=== PATIENT | male | born 1950 | race Caucasian/White ===

== ENCOUNTER 2021-03-25 15:37 | Emergency (ER) | payer MEDICARE, SELFPAY ==
--- NOTE | ~2021-03-25 | CT_ITS ---
EXAMINATION: CTA chest DATE: 03/25/2021 18:59 INDICATION: Shortness of breath TECHNIQUE: Computed tomographic angiography (CTA) of the chest was performed with 100 mL Omnipque-350 intravenous contrast. Maximum intensity projection 3D-reconstructions of the aorta and other arterie s were constructed by the technologist on a separate workstation. The dose-length product (DLP) was 5 83.98 mGy-cm. Automated exposure control and iterative reconstruction technique were employed. COMPARISON: None. FINDINGS: The thoracic aorta is normal without evidence of aneurysm or dissection. Calcified coronary artery atherosclerosis is noted. The pulmonary arteries are well-opacified. No pulmonary embolism is identified. The lungs are free of acute opacities. No pathologically enlarged thoracic lymph nodes a re identified. The heart size is normal. There is no pleural effusion or pneumothorax. Calcified pulm onary nodules are consistent with old granulomatous disease. There is a 3.4 cm nodule of the left thy roid lobe. There is a 1.4 cm nodule of the isthmus. Neurostimulator leads and posteriorly in the cent ral spinal canal at the level of the T6 vertebral body. IMPRESSION: 1. No thoracic aortic aneurysm or dissection. No acute cardiopulmonary abnormality. 2. Multinodular goiter. Follow-up with nonemergent thyroid ultrasound is recommended. Reviewed, dictated and finalized at location A. IMPRESSION: 1. No thoracic aortic aneurysm or dissection. No acute cardiopulmonary abnormal ity. 2. Multinodular goiter. Follow-up with nonemergent thyroid ultrasound is recomm ended.
--- NOTE | ~2021-03-25 | XR_ITS ---
EXAMINATION: XR chest 2V DATE: 03/25/2021 16:20 INDICATION: Midsternal chest pain TECHNIQUE: PA and lateral views of the chest are obtained. COMPARISON: 05/14/2013 FINDINGS: The lungs are free of acute opacities. There is no pleural effusion or pneumothorax. The ca rdiomediastinal silhouette is normal. There is moderate thoracic spondylosis. Neurostimulator leads p roject in the central spinal canal IMPRESSION: 1. No acute cardiopulmonary abnormality. Reviewed, dictated and finalized at location A.
--- NOTE | 2021-03-25 16:01 | PC.NURSE ---
pt ambulatory with steady gait to front end driver asking about wait time. pt informed we are unable to provide wait times. pt stated, well a year ago they found blood clots . pt does not appear to be in any distress. informed we would get him triaged and to a room as soon as we are able.
[2021-03-25 16:05] VITALS: BP 121/83; PULSE 92; RESP 18; TEMP 36.5; O2SAT 98
--- NOTE | 2021-03-25 16:05 | ECG_ITS ---
Measurements Intervals Ama Rate: 90 P: 58 RI: 128 QRS: -18 QRSD: 79 T: 75 QT: 330 QTc: 405 Interpretive Statements SINUS RHYTHM NORMAL ECG Electronically Signed On 03-25-2021 17:01:36 CDT by Serge Reeves D.O.
[2021-03-25 16:20] LABS: Basophils Absolute Auto 0.1 K/mm3 (0.0-0.1); Basophils Percent Auto 0.7 % (0.2-1.2); Eosinophils Absolute Auto 0.1 K/mm3 (0-0.3); Eosinophils Percent Auto 1.1 % (0-4.4); Hematocrit 45.8 % (42.0-52.0); Hemoglobin 15.3 g/dL (14.0-18.0); Immature Granulocyte Absolute 0.12 K/mm3 (0.00-0.031); Immature Granulocyte Percent A 1.3 % (0-0.5); Lymphocytes Absolute Auto 2.87 K/mm3 (0.9-3.2); Lymphocytes Percent Auto 31.3 % (18.3-44.2); Mean Corpuscular HGB Conc 33.4 g/dl (32-36); Mean Corpuscular Hemoglobin 29.7 pg (26-34); Mean Corpuscular Volume 88.9 fl (80-100); Mean Platelet Volume 9.6 fl (7.4-10.4); Monocytes Absolute Auto 0.8 K/mm3 (0.1-0.6); Monocytes Percent Auto 8.3 % (2.6-8.5); Neutrophils Absolute Auto 5.3 K/mm3 (1.3-6.7); Neutrophils Percent Auto 57.3 % (45.5-73.1); Platelet Count Result 300 k/mm3 (150-375); Red Blood Count 5.15 M/mm3 (4.6-6.20); Red Cell Distribution Width 13.4 % (11.5-14.5); White Blood Count 9.2 K/mm3 (4.5-10.0)
[2021-03-25 16:28] LABS: Anion Gap 11 mmol/L (8-16); Blood Urea Nitrogen 25 mg/dL (9-20); Calcium 9.8 mg/dL (8.4-10.2); Carbon Dioxide 23 mmol/L (22-30); Chloride 103 mmol/L (98-107); Estimated CRCL calculation 47 ml/min; Estimated Glomerular Filt Rate 46; Glucose 92 mg/dL (65-110); Potassium 4.4 mmol/L (3.4-5.0); Sodium 137 mmol/L (137-145)
[2021-03-25 16:35] LABS: INR 0.9; Prothrombin Time 11.6 Seconds (11.1-14.7)
[2021-03-25 16:46] LABS: Troponin I < 0.012 ng/mL (0.000-0.034)
--- NOTE | 2021-03-25 17:58 | PC.NURSE ---
pt up to front end architect stating my god, how long does it take to get a room? . pt informed again of process and that we are unable to provide an estimated wait time.
--- NOTE | 2021-03-25 18:00 | PC.NURSE ---
lab called regarding added on d dimer that was ordered at approx 1601. lab personnel states oh, I didn't see it. I'll add it on now
[2021-03-25 18:11] LABS: D Dimer 0.33 ug/mL (<0.48)
--- NOTE | 2021-03-25 19:02 | ED.CHESTPAIN ---
HPI - Chest Pain General Chief Complaint: Chest Pain Stated Complaint: CP, SOB since yesterday Time Seen by Provider: 03/25/21 19:01 History of Present Illness HPI narrative: 70 yo male w/ h/o PE, htn, PTSD presents to the ED for chest pain. He has had right sided pleuritic chest pain since yesterday. This is associated with SOB. Feels like when he had a PE. He is no longer on blood thinners. He reports that he had sme leg swelling a few days ago, which has resolved. No fever, cough, nausea, vomiting. Related Data Allergies Allergy/AdvReac Type Severity Reaction Status Date / Time No Known Allergies Allergy Unverified 08/14/18 09:10 Review of Systems Review of Systems: All systems reviewed & are unremarkable except as noted in HPI and below ENT: Reports system reviewed and no additional complaints, except as documented Respiratory: Respiratory: Reports no additional respiratory complaints Gastrointestinal: Gastrointestinal: Reports no additional gastrointestinal complaints Genitourinary: Genitourinary: Reports no additional male genitourinary complaints Neurologic: Denies dizziness and Denies weakness Psychiatric: Psychiatric: Reports anxiety PMFSH Past Medical History Medical History (Updated 03/25/21 @ 20:44 by Carlos Barksdale MD) PTSD (post-traumatic stress disorder) Pulmonary embolism Social History Social History (Updated 03/25/21 @ 19:37 by Carlos Barksdale MD) Gender identity (if verbalized by the patient): Male Exam Const: General: healthy appearing, no acute distress and alert Orientation/consciousness: patient oriented x3 HENMT: Head: normal to inspection Neck: Neck: normal visual inspection and no lymphadenopathy Chest: Chest palpation & inspection: no tenderness Resp: Effort & Inspection: normal respiratory effort Auscultation: clear to auscultation bilaterally, no rales, no rhonchi and no wheezes Cardio: Jugular venous distension: no JVD Rate: regular rate Rhythm: regular rhythm Heart sounds: no murmurs GI: Inspection: non-distended GI Palp: Yes Soft to palpation and No Tenderness to palpation present (GI) Skin: General skin exam: normal color Neuro: General: patient oriented x3 and moves all extremities Speech: normal speech Extrem: General: no edema Psych: Appearance: well kempt Affect: normal affect Course Vital Signs Vital signs: Vital Signs Temperature 36.5 C 03/25/21 16:05 Pulse Rate 92 03/25/21 16:05 Respiratory Rate 18 03/25/21 16:05 Blood Pressure 121/83 03/25/21 16:05 Pulse Oximetry 98 03/25/21 16:05 Temperature 36.5 C 03/25/21 16:05 Pulse Rate 88 03/25/21 19:28 Respiratory Rate 20 03/25/21 19:28 Blood Pressure 131/95 H 03/25/21 19:28 Pulse Oximetry 100 03/25/21 19:28 MDM - Chest Pain MDM Narrative Medical decision making narrative: CTA negative. EKG normal. Troponin negative. Other labs reassuring. Likely Pleurisy versus GI. Differential Diagnosis Differential diagnosis: Likely pneumothorax, atypical chest pain, chest pain and other (pleurisy) Medical Records Data Attestation: I reviewed the patient's medical records. Lab Data Attestation: I reviewed the patient's lab results. Result diagrams: 03/25/21 16:12 03/25/21 16:12 Labs: Lab Results 03/25/21 03/25/21 03/25/21 Range/Units 16:12 16:12 16:12 WBC 9.2 (4.5-10.0) K/mm3 RBC 5.15 (4.6-6.20) M/mm3 Hgb 15.3 (14.0-18.0) g/dL Hct 45.8 (42.0-52.0) % MCV 88.9 (80-100) fl MCH 29.7 (26-34) pg MCHC 33.4 (32-36) g/dl RDW 13.4 (11.5-14.5) % Plt Count 300 (150-375) k/mm3 MPV 9.6 (7.4-10.4) fl Immature Gran % (Auto) 1.3 H (0-0.5) % Neut % (Auto) 57.3 (45.5-73.1) % Lymph % (Auto) 31.3 (18.3-44.2) % [place] % (Auto) 8.3 (2.6-8.5) % Eos % (Auto) 1.1 (0-4.4) % Baso % (Auto) 0.7 (0.2-1.2) % Lymph # (Auto) 2.87 (0.9-3.2) K/mm3 [place] # (Auto) 0
[2021-03-25 19:28] VITALS: BP 131/95; PULSE 88; RESP 20; O2SAT 100
[2021-03-25] MEDS: KETOROLAC 30 MG/ML VIAL (*BKC) IV PUSH (19:36)
[2021-03-25 19:52] LABS: Troponin I < 0.012 ng/mL (0.000-0.034)
[2021-03-25] MEDS: PANTOPRAZOLE SODIUM IV 40 MG VIAL IV PUSH (20:04)
[2021-03-25] MEDS: traMADol HCL (*CRX) 50 MG TABLET PO (20:55)
[2021-03-25 21:41] VITALS: BP 127/92; PULSE 77; RESP 20; O2SAT 98
== END 2021-03-25 21:43 | disposition home or self-care (01) ==
PROVIDERS: Emergency Medicine; Emergency Provider Emergency Medicine; PCP Internal Medicine
DX: R07.89 Other chest pain (principal); Z86.711 Personal history of pulmonary embolism; I10 Essential (primary) hypertension; E04.2 Nontoxic multinodular goiter
CPT/HCPCS: 36415; 71046; 71275; 80048; 84484; 85025; 85380; 85610; 85730; 93005; 96374; 96375; 99284; A9270; C9113; J1885; Q9967

== ENCOUNTER 2021-12-09 09:46 | Outpatient (CLI) | payer MEDICARE, SELFPAY ==
--- NOTE | 2021-12-09 11:30 | NEURO_ITS ---
Impression: # Complains of numbness in hands. # Right Carpal Tunnel Syndrome of mild degree. # No ulnar neuropathy. # Normal needle/EMG exam. Nerve Conduction Studies Anti Sensory Summary Table Stim Site NR Peak (ms) P-T Amp (?V) Site1 Site2 Delta-P (ms) Dist (cm) Marquise (m/s) Left Median Anti Sensory (2-3nd Digit) Wrist 3.5 39.2 Wrist 2-3nd Digit 3.5 14.0 40 Wrist 3.5 41.9 Wrist 2-3nd Digit 3.5 14.0 40 Right Median Anti Sensory (2-3nd Digit) Wrist 3.9 13.7 Wrist 2-3nd Digit 3.9 14.0 36 Wrist 3.9 14.9 Wrist 2-3nd Digit 3.9 14.0 36 Left Radial Anti Sensory (Base 1st Digit) Wrist 2.5 10.8 Wrist Base 1st Digit 2.5 0.0 Right Radial Anti Sensory (Base 1st Digit) Wrist 2.6 12.1 Wrist Base 1st Digit 2.6 0.0 Left Ulnar Anti Sensory (5th Digit) Wrist 2.8 51.4 Wrist 5th Digit 2.8 14.0 50 Right Ulnar Anti Sensory (5th Digit) Wrist 2.8 33.3 Wrist 5th Digit 2.8 14.0 50 Motor Summary Table Stim Site NR Onset (ms) O-P Amp (mV) Site1 Site2 Delta-0 (ms) Dist (cm) Marquise (m/s) Left Median Motor (Abd Poll Brev) Wrist 3.8 2.8 Elbow Wrist 5.0 28.0 56 Elbow 8.8 2.6 Right Median Motor (Abd Poll Brev) Wrist 4.2 3.7 Elbow Wrist 5.1 29.0 57 Elbow 9.3 3.5 Left Ulnar Motor (Abd Dig Minimi) Wrist 2.9 8.0 A Elbow Wrist 5.3 29.0 55 A Elbow 8.2 6.4 Right Ulnar Motor (Abd Dig Minimi) Wrist 3.0 7.7 A Elbow Wrist 5.5 31.0 56 A Elbow 8.5 6.6 F Wave Studies NR F-Lat (ms) L-R F-Lat (ms) Left Median (Mrkrs) (Abd Poll Brev) 29.95 0.15 Right Median (Mrkrs) (Abd Poll Brev) 30.10 0.15 Left Ulnar (Mrkrs) (Abd Dig Min) 30.94 0.37 Right Ulnar (Mrkrs) (Abd Dig Min) 30.57 0.37 EMG Side Muscle Nerve Root Ins Act Fibs Amp Dur Recrt Comment Right 1stDorInt Ulnar C8-T1 Nml Nml Nml Nml Nml Right Ext Indicis Radial (Post Int) C7-8 Nml Nml Nml Nml Nml Right Ext Digitorum Radial (Post Int) C7-8 Nml Nml Nml Nml Nml Right BrachioRad Radial C5-6 Nml Nml Nml Nml Nml Right PronatorTeres Median C6-7 Nml Nml Nml Nml Nml Right Abd Poll Brev Median C8-T1 Nml Nml Nml Nml Nml Left 1stDorInt Ulnar C8-T1 Nml Nml Nml Nml Nml Left Ext Indicis Radial (Post Int) C7-8 Nml Nml Nml Nml Nml Left Ext Digitorum Radial (Post Int) C7-8 Nml Nml Nml Nml Nml Left BrachioRad Radial C5-6 Nml Nml Nml Nml Nml Left PronatorTeres Median C6-7 Nml Nml Nml Nml Nml Left Abd Poll Brev Median C8-T1 Nml Nml Nml Nml Nml Right ABD Dig Min Ulnar C8-T1 Nml Nml Nml Nml Nml Right Abd Poll Long Radial (Post Int) C7-8 Nml Nml Nml Nml Nml Left ABD Dig Min Ulnar C8-T1 Nml Nml Nml Nml Nml Left Abd Poll Long Radial (Post Int) C7-8 Nml Nml Nml Nml Nml MTDD
== END 2021-12-09 09:47 | disposition home or self-care (01) ==
PROVIDERS: PCP Family Medicine; Visit Provider Orthopaedic Surgery
DX: R20.8 Other disturbances of skin sensation (principal); G56.01 Carpal tunnel syndrome, right upper limb
CPT/HCPCS: 95886; 95911

== ENCOUNTER 2022-01-26 10:59 | Outpatient (CLI) | payer MEDICARE, SELFPAY ==
--- NOTE | ~2022-01-26 | US_ITS ---
EXAMINATION: US thyroid DATE: 01/26/2022 11:46 INDICATION: Nontoxic single thyroid nodule. TECHNIQUE: Multiple ultrasound images of the thyroid were obtained. COMPARISON: Chest CT 03/25/2021 FINDINGS: The right thyroid lobe measures 4.9 x 1.7 x 2.1 cm. The left thyroid lobe measures 5.2 x 9.5 x 4.6 c m. In the right thyroid lobe, there is an 11 mm mixed cystic and solid, isoechoic nodule with ill-de fined margin without echogenic foci (TI-RADS TR2). In the left thyroid lobe, there is a 3.3 cm mixed cystic and solid, isoechoic, wider than tall nodule with ill-defined margin without echogenic foci (T R2). In the left thyroid lobe, there is a 5.5 cm predominantly solid, hypoechoic, wider than tall nod ule with ill-defined margin without echogenic foci (TR4). IMPRESSION: 1. Multinodular goiter. Ultrasound-guided fine-needle aspiration of a left thyroid nodule is recommen ded. Reviewed, dictated and finalized at location A. IMPRESSION: 1. Multinodular goiter. Ultrasound-guided fine-needle aspiration of a left thyr oid nodule is recommended.
== END 2022-01-26 11:00 | disposition home or self-care (01) ==
PROVIDERS: PCP Family Medicine; Visit Provider Family Medicine
DX: E04.2 Nontoxic multinodular goiter (principal)
CPT/HCPCS: 76536

== ENCOUNTER 2022-03-31 12:03 | Outpatient (CLI) | payer MEDICARE, SELFPAY ==
--- NOTE | ~2022-03-31 | XR_ITS ---
EXAMINATION: XR abdomen/kub 1V DATE: 03/31/2022 12:30 INDICATION: Constipation TECHNIQUE: A supine view of the abdomen on 2 radiographs was obtained. COMPARISON: None FINDINGS: Moderate amount of gas scattered throughout nondilated loops of large and small bowel. Small to moder ate amount of stool scattered throughout the colon. Lung bases are clear. Heart size is normal. Sever e lumbar spondylosis with interspinous process fixation device at L4-L5. Spinal stimulator projects o f the right abdomen with leads extending cephalad projecting over the central canal with distal tip o f one lead at the level of the inferior aspect of T7 the second lead position slightly higher with di stal tip just beyond the cephalad margin of the [id number]. A few phleboliths in the pelvis. Surgi holland clips projecting over the left supra-acetabular region likely related to prior inguinal hernia re pairs. IMPRESSION: 1. Normal bowel gas pattern with small to moderate amount stool scattered throughout the colon. Reviewed, dictated and finalized at location A. IMPRESSION: 1. Normal bowel gas pattern with small to moderate amount stool scattered throu ghout the colon.
[2022-03-31 12:56] LABS: Basophils Percent Auto 0.4 % (0.2-1.2); Eosinophils Percent Auto 0.3 % (0-4.4); Hematocrit 47.3 % (42.0-52.0); Hemoglobin 16.1 g/dL (14.0-18.0); Immature Granulocyte Absolute 0.03 K/mm3 (0.00-0.031); Immature Granulocyte Percent A 0.3 % (0-0.5); Lymphocytes Absolute Auto 2.08 K/mm3 (0.9-3.2); Lymphocytes Percent Auto 20.6 % (18.3-44.2); Mean Corpuscular Hemoglobin 30.6 pg (26-34); Mean Corpuscular Volume 89.9 fl (80-100); Mean Platelet Volume 9.8 fl (7.4-10.4); Monocytes Percent Auto 9.6 % (2.6-8.5); Neutrophils Percent Auto 68.8 % (45.5-73.1); Platelet Count Result 276 k/mm3 (150-375); Red Blood Count 5.26 M/mm3 (4.6-6.20); Red Cell Distribution Width 13.1 % (11.5-14.5); White Blood Count 10.1 K/mm3 (4.5-10.0)
[2022-03-31 13:10] LABS: Alanine Aminotransferase 14 U/L (6-50); Albumin Level 4.9 g/dL (3.5-5.1); Alkaline Phosphatase 68 U/L (38-126); Amylase 61 U/L (30-110); Anion Gap 11 mmol/L (8-16); Aspartate Amino Transferase 22 U/L (17-59); Bilirubin,Total 0.9 mg/dL (0.2-1.3); Blood Urea Nitrogen 21 mg/dL (9-20); Calcium 9.9 mg/dL (8.4-10.2); Carbon Dioxide 27 mmol/L (22-30); Chloride 95 mmol/L (98-107); Estimated Glomerular Filt Rate > 60; Glucose 117 mg/dL (65-110); Lipase 38 U/L (23-300); Potassium 3.5 mmol/L (3.4-5.0); Sodium 133 mmol/L (137-145)
== END 2022-03-31 12:04 | disposition home or self-care (01) ==
LOC: ANHIMG 12:11
PROVIDERS: PCP Family Medicine; Visit Provider Nurse Practitioner Family
DX: K59.00 Constipation, unspecified (principal); R10.9 Unspecified abdominal pain; K74.60 Unspecified cirrhosis of liver; E04.1 Nontoxic single thyroid nodule; E04.2 Nontoxic multinodular goiter; R91.1 Solitary pulmonary nodule
CPT/HCPCS: 36415; 74018; 80053; 82150; 83690; 84439; 84443; 85025

== ENCOUNTER 2022-04-12 07:37 | Outpatient (CLI) | payer MEDICARE, SELFPAY ==
--- NOTE | ~2022-04-12 | CT_ITS ---
EXAMINATION: CT diagnostic chest w con DATE: 04/12/2022 08:16 INDICATION: Chest pain. History of pulmonary nodules. TECHNIQUE: Computed tomography (CT) of the chest was performed with 100 cc Omnipaque 350 intravenous contrast. The dose-length product was 226.01 mGy-cm. Automated exposure control and iterative reconst ruction technique were employed. COMPARISON: CT dated 03/25/2021 FINDINGS: No significant pleural or pericardial effusion. No thoracic lymphadenopathy. Enlarged left thyroid gland containing multiple masses. No thoracic lymphadenopathy. Fatty infiltration of the live r. Calcified granuloma left lower lobe. 2 mm groundglass nodule right upper lobe, likely benign. No f ocal airspace consolidation. No pneumothorax. No endobronchial lesions. Mild thoracic spondylosis. Sp inal stimulator leads are present in the midthoracic spine. IMPRESSION: 1. Multinodular goiter. Ultrasound-guided fine-needle aspiration biopsy of dominant left thyroid mass recommended on prior examination. 2: Groundglass nodule right upper lobe measuring 2 mm, likely benign. Reviewed, dictated and finalized at location B. IMPRESSION: 1. Multinodular goiter. Ultrasound-guided fine-needle aspiration biopsy of julius nant left thyroid mass recommended on prior examination. 2: Groundglass nodule right upper lobe measuring 2 mm, likely benign.
== END 2022-04-12 07:38 | disposition home or self-care (01) ==
PROVIDERS: PCP Family Medicine; Visit Provider Nurse Practitioner Family
DX: R91.1 Solitary pulmonary nodule (principal); R30.0 Dysuria; K74.60 Unspecified cirrhosis of liver; E04.2 Nontoxic multinodular goiter
CPT/HCPCS: 71260; Q9967

== ENCOUNTER 2022-04-18 12:39 | Outpatient (CLI) | payer MEDICARE, SELFPAY ==
--- NOTE | ~2022-04-18 | US_ITS ---
EXAMINATION: US FNA w image guidance DATE: 04/18/2022 13:26 INDICATION: Nontoxic multinodular goiter. TECHNIQUE: The procedure and its benefits and risks were discussed with the patient. Risks specifically discusse d included bleeding. The patient verbalized understanding of the risks and agreed to proceed. The nec k was prepped and draped in the usual sterile manner. 1% lidocaine was used for local anesthesia. 6 passes were made with a 25G needle into the lesion under ultrasound guidance. There were no immedia te complications. FINDINGS: Grayscale ultrasound images demonstrate needles advanced into a 5.5 cm nodule in left thyroid lobe fo r biopsy. IMPRESSION: 1. Ultrasound-guided fine needle aspiration of a left thyroid nodule. Reviewed, dictated and finalized at location A.
== END 2022-04-18 12:40 | disposition home or self-care (01) ==
PROVIDERS: PCP Family Medicine; Visit Provider Nurse Practitioner Family
DX: E04.2 Nontoxic multinodular goiter (principal)
CPT/HCPCS: 10005; 88173; 88305

== ENCOUNTER 2022-04-19 10:50 | Outpatient (CLI) | payer MEDICARE, SELFPAY ==
[2022-04-19 11:20] LABS: Anion Gap 13 mmol/L (8-16); Blood Urea Nitrogen 23 mg/dL (9-20); Calcium 9.2 mg/dL (8.4-10.2); Carbon Dioxide 23 mmol/L (22-30); Chloride 100 mmol/L (98-107); Estimated Glomerular Filt Rate > 60; Glucose 109 mg/dL (65-110); Potassium 4.1 mmol/L (3.4-5.0); Sodium 136 mmol/L (137-145)
== END 2022-04-19 10:51 | disposition home or self-care (01) ==
PROVIDERS: PCP Family Medicine; Visit Provider Nurse Practitioner Family
DX: E87.1 Hypo-osmolality and hyponatremia (principal)
CPT/HCPCS: 36415; 80048

== ENCOUNTER 2022-05-17 12:21 | Outpatient (CLI) | payer MEDICARE, SELFPAY ==
--- NOTE | ~2022-05-17 | US_ITS ---
EXAMINATION: US FNA w image guidance DATE: 05/17/2022 13:42 INDICATION: Nontoxic multinodular goiter. TECHNIQUE: The procedure and its benefits and risks were discussed with the patient. Risks specifically discusse d included bleeding. The patient verbalized understanding of the risks and agreed to proceed. The nec k was prepped and draped in the usual sterile manner. 1% lidocaine was used for local anesthesia. 6 passes were made with a 25G needle into the lesion under ultrasound guidance. There were no immedia te complications. FINDINGS: Grayscale ultrasound images demonstrate needles advanced into a 5.5 cm nodule in left thyroid lobe fo r biopsy. IMPRESSION: 1. Ultrasound-guided fine needle aspiration of a left thyroid nodule. Reviewed, dictated and finalized at location A.
== END 2022-05-17 12:22 | disposition home or self-care (01) ==
PROVIDERS: PCP Family Medicine; Visit Provider Nurse Practitioner Family
DX: E04.2 Nontoxic multinodular goiter (principal)
CPT/HCPCS: 10005; 88173; 88305

== ENCOUNTER 2022-08-31 08:34 | Outpatient (CLI) | payer MEDICARE, SELFPAY ==
[2022-08-31 09:19] LABS: Basophils Percent Auto 0.6 % (0.2-1.2); Eosinophils Absolute Auto 0.1 K/mm3 (0-0.3); Eosinophils Percent Auto 1.9 % (0-4.4); Hematocrit 45.2 % (42.0-52.0); Hemoglobin 14.5 g/dL (14.0-18.0); Immature Granulocyte Absolute 0.02 K/mm3 (0.00-0.031); Immature Granulocyte Percent A 0.4 % (0-0.5); Lymphocytes Percent Auto 26.4 % (18.3-44.2); Mean Corpuscular HGB Conc 32.1 g/dl (32-36); Mean Corpuscular Hemoglobin 30.6 pg (26-34); Mean Corpuscular Volume 95.4 fl (80-100); Mean Platelet Volume 9.9 fl (7.4-10.4); Monocytes Absolute Auto 0.5 K/mm3 (0.1-0.6); Monocytes Percent Auto 8.5 % (2.6-8.5); Neutrophils Absolute Auto 3.3 K/mm3 (1.3-6.7); Neutrophils Percent Auto 62.2 % (45.5-73.1); Platelet Count Result 205 k/mm3 (150-375); Red Blood Count 4.74 M/mm3 (4.6-6.20); Red Cell Distribution Width 13.6 % (11.5-14.5); White Blood Count 5.3 K/mm3 (4.5-10.0)
[2022-08-31 09:22] LABS: Anion Gap 5 mmol/L (8-16); Blood Urea Nitrogen 14 mg/dL (9-20); Calcium 8.8 mg/dL (8.4-10.2); Carbon Dioxide 30 mmol/L (22-30); Chloride 101 mmol/L (98-107); Estimated Glomerular Filt Rate > 60; Glucose 96 mg/dL (65-110); Potassium 4.3 mmol/L (3.4-5.0); Sodium 136 mmol/L (137-145)
[2022-08-31 09:30] LABS: Partial Thromboplastin Time 25.3 SECONDS (22.3-36.8)
== END 2022-08-31 08:35 | disposition home or self-care (01) ==
PROVIDERS: PCP Family Medicine; Visit Provider Urology
DX: N40.0 Benign prostatic hyperplasia without lower urinary tract symptoms (principal); Z01.818 Encounter for other preprocedural examination
CPT/HCPCS: 36415; 80048; 85025; 85610; 85730; 87086

== ENCOUNTER 2022-09-07 13:52 | Observation (INO) | payer MEDICARE, SELFPAY ==
[2022-08-30 08:23] VITALS: BMI 27.2
--- NOTE | 2022-08-30 08:52 | PC.NURSE ---
PRE-OP INSTRUCTIONS, PLEASE READ CAREFULLY Report to the Outpatient Waiting Room, entrance under the green pavilion located off [facility], at time _1030_ on date _09/06/22_. Planned Procedure Time: _1230_. PACK A SMALL OVERNIGHT BAG AND LEAVE IN THE CAR Time changes happen often and if your time is changed the preop area will call you the afternoon before. - You and your visitor will be asked to self-screen and do not enter if you have any COVID symptoms. - Only one visitor is requested with a max of two and NO children visitors are allowed at this time. - The patient visitor may be requested to leave or wait in car when not with patient due to distancing restrictions. - A mask is optional within the hospital. -VISITING HOURS 8AM-8PM Patients may have clear liquids (water, carbonated beverages, clear teas, apple juice) until 3 hours prior to surgery (0930 AM) with a maximum of 20 ounces. - No food from midnight until time of surgery Take the following medications with a SIP of water the morning of surgery: _WELLBUTRIN, CYMBALTA _ Medications to discontinue per physician ___VITAMIN C PER DR. PERRY'S INSTRUCTIONS__, Date to take last dose____ Please no deodorant, or body powder the day of surgery. No jewelry (including any body piercings) or valuables the day of surgery, leave them at home. Please take a shower or bath the night before, or the morning of, surgery with an antibacterial soap. Wear comfortable, loose fitting clothing. - Jewelry must be removed prior to entering the operating room. Rings and piercings that are not removed may be cut off. - The hospital will not accept responsibility for valuables. - Please leave all valuables, including medications, at home the day of surgery. If you are going home after surgery, a licensed clamp truck driver must drive you home. - NO public transportation without another adult if you receive anesthesia. - We recommend that an adult stay with you for 24 hours following discharge. - We also recommend that you do not drive, make important decision, drink alcoholic beverages, or take any drugs that were not prescribed by your health care provider for at least 24 hours after your discharge time. Follow any additional instructions given to you from your surgeon. If you or anyone in your household have experienced Covid symptoms in the past week, please notify your surgeon or the nurse liaison at the phone number below for possible testing. Telephone instructions given to _PATIENT_and asked if any additional questions and then verbalized understanding. Patient advised to call surgeon office or pre surgery nurse liaison [phone] if any additional questions.
[2022-09-06] VITALS (13 sets, daily range): BP systolic 92–161; BP diastolic 56–112; PULSE 60–74; RESP 14–23; TEMP 36.2–36.9; O2SAT 99–100; BMI 28.0
[2022-09-06] MEDS: LACTATED RINGERS 1,000 ML 30 ML IV CONT ×2 (11:00→17:26)
--- NOTE | 2022-09-06 11:09 | WPDANESEPPF ---
Anes - Initial Pre Proc Eval Procedure: Operation Date: 09/06/22 12:30 Proposed Procedures p Trans Urethral Resection Prostate - Jadon Sanchez MD Date/Time: 09/06/22 11:09 Surgeon: Jadon Sanchez MD Pre Op Diagnosis: BPH Patient Data Age: 72 Gender: M Height: 1.79 m Weight: 88.5 kg Last Vital Signs Temp 36.9 C 09/06/22 10:58 Pulse 62 09/06/22 10:58 Resp 16 09/06/22 10:58 BP 120/71 09/06/22 10:58 Pulse Ox 99 09/06/22 10:58 O2 Del Method Room Air 09/06/22 10:58 Allergies Allergy/AdvReac Type Severity Reaction Status Date / Time No Known Allergies Allergy Verified 09/06/22 10:13 Home Medications Medication Instructions Recorded Confirmed Type hydrocodone 10 mg-acetaminophen 1 tablet PO Q8H PRN Pain 12/30/21 09/06/22 History 325 mg tablet ascorbic acid (vitamin C) 500 mg 500 mg PO DAILY 08/30/22 09/06/22 History tablet (Vitamin C) bupropion HCl 300 mg 24 hr tablet, 300 mg PO QAM 08/30/22 09/06/22 History extended release (Wellbutrin XL) duloxetine 30 mg capsule,delayed 30 mg PO DAILY 08/30/22 09/06/22 History release (Cymbalta) linaclotide 72 mcg capsule 72 mcg PO DAILY PRN IBS 08/30/22 08/30/22 History (Linzess) trazodone 50 mg tablet 100 mg PO QHS SLEEP 08/30/22 09/06/22 History Patient hx anesthesia problems: none Family hx anesthesia problems: none Results Review: All pre-operative results and documents have been reviewed as part of the pre-operative evaluation. [facility] Past Medical History Medical History Anxiety BMI 27.0-27.9,adult BMI 28.0-28.9,adult Body mass index [BMI] 26.0-26.9, adult Chronic low back pain History of hepatitis C [place] (hard of hearing) Hypertension Insomnia Liver cirrhosis WILBERT on CPAP PTSD (post-traumatic stress disorder) Pulmonary embolism Restless leg syndrome Thyroid nodule Surgical History Surgical History History of back surgery History of hernia repair Family History Family History Father Mother Hypertension Sibling COVID-19 Sibling Diabetes mellitus Hypertension Social History Social History Smoking packs per day: 1 Smoking cigarettes per day: 20.0 Years smoked: 15 Smoking pack-years: 15.00 Smoking status: Former smoker Tobacco type: cigarettes Second hand tobacco smoke exposure: No Smoking end date: 02/24/81 Alcohol intake: never Substance use: never Substance use type: does not use Living arrangements: with family 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 Informed Consent: The patient's anesthetic plan and its attendant risks and benefits were discussed with the patient/family/POA. Questions were solicited and answers provided to the satisfaction of the patient/family/POA.
--- NOTE | 2022-09-06 12:47 | SUR.PREOP ---
Discussed delay with patient. Voiced understanding. No needs at present.
--- NOTE | 2022-09-06 13:36 | SUR.PREOP ---
Discussed continued delay.
--- NOTE | 2022-09-06 15:11 | SUR.PREOP ---
Delay update given to patient and .
--- NOTE | 2022-09-06 15:36 | WPDHPUPDATE1 ---
History and Physical Update Update Date/Time: 09/06/22 15:36 History and Physical has been reviewed, including an updated exam of the patient. There are NO changes in the patient's condition. Risks, benefits, and alternatives have been discussed and questions answered. Patient agrees to proceed with procedure. Proceed with TURP
[2022-09-06] MEDS: ceFAZolin 2 GM/D5W 50 ML 2 GM/50 ML BAG IVPB (16:07)
[2022-09-06] MEDS: LIDOCAINE HCL 2% GEL UROJET 10 ML PKG MUCOUS MEM (16:25)
--- NOTE | 2022-09-06 16:55 | W.PM.PROC2 ---
Procedure Note - Detailed Date of Procedure 09/06/22 Pre-op Diagnosis BPH Post-op Diagnosis Same Procedure Performed The patient was brought to the operative suite where he is prepped and draped in routine sterile fashion while in the dorsal lithotomy position after the uneventful induction of a [general LMA/spinal] anesthetic. Urethra was dilated up to 26 Moroccan A 24 Moroccan resectoscope sheath was placed into his bladder. He had no urethral strictures. The patient had [trilobar/bilobar] hyperplasia with a [moderate] median lobe. The bladder itself was endoscopically normal, showing no mucosal hyperemia, intravesical neoplasm or foreign bodies. There was a single, orthotopic ureteral orifice bilaterally. These orifices were identified and preserved throughout the remainder of the procedure. Attention was 1st turned to resection of the median lobe . This resection was undertaken from the bladder neck to the verumontanum and carried out until the transverse fibers of the bladder neck were identified. The left lateral lobe was then resected starting at the 6 o'clock position, working counter clockwise to the 12 o'clock position. Again, resection was carried out from the bladder neck to the verumontanum until the capsular fibers of the prostate were identified. The right lateral lobe was resected in a similar fashion starting at the 6 o'clock position working clockwise to the 12 o'clock position and carried out until the capsular fibers of the prostate were identified. Apical tissue was then circumferentially resected. All chips were evacuated from the bladder using an The Hitch evacuator. Hemostasis was obtained with electric cautery. The ureteral orifices were again inspected and found to be without injury. Estimated blood loss throughout this procedure was [100]cc . The patient was taken to recovery room having tolerated this well. Surgeon Jadon Sanchez MD Anesthesia General Description of Procedure Patient was taken the operative suite correctly identified. Once anesthesia was obtained was placed in dorsal lithotomy position and prepped and draped usual sterile fashion. Urethra was dilated up to 26 Moroccan A 24 Moroccan resectoscope sheath was placed into his bladder. He had no urethral strictures. The patient had [trilobar/bilobar] hyperplasia with a [moderate] median lobe. The bladder itself was endoscopically normal, showing no mucosal hyperemia, intravesical neoplasm or foreign bodies. There was a single, orthotopic ureteral orifice bilaterally. These orifices were identified and preserved throughout the remainder of the procedure. Attention was 1st turned to resection of the median lobe . This resection was undertaken from the bladder neck to the verumontanum and carried out until the transverse fibers of the bladder neck were identified. The left lateral lobe was then resected starting at the 6 o'clock position, working counter clockwise to the 12 o'clock position. Again, resection was carried out from the bladder neck to the verumontanum until the capsular fibers of the prostate were identified. The right lateral lobe was resected in a similar fashion starting at the 6 o'clock position working clockwise to the 12 o'clock position and carried out until the capsular fibers of the prostate were identified. Apical tissue was then circumferentially resected. All chips were evacuated from the bladder using an The Hitch evacuator. Hemostasis was obtained with electric cautery. The ureteral orifices were again inspected and found to be without injury. Estimated blood loss throughout this procedure was [100]cc . The patient was taken to recovery room having tolerated this well. Estimated Blood Loss 100 Drains Yes Packing No Pathology Yes Complications No immediate complications Condition Stable Disposition PACU
[2022-09-06] MEDS: fentaNYL CITRATE INJ (*CRX) 100 MCG/2 ML VIAL 25 MCG IV PUSH ×8 (17:22→18:25)
[2022-09-06] MEDS: HYOSCYAMINE SULFATE 0.125 MG TABLET PO (17:42)
[2022-09-06] MEDS: MEPERIDINE HCL INJ (*CRX) 50 MG/ML AMPUL 12.5 MG IV PUSH ×2 (18:14→18:34)
[2022-09-06] MEDS: MORPHINE SULFATE (*CRX) 2 MG/ML INJ IV PUSH (20:20)
[2022-09-06] MEDS: hydrOXYzine HCl 50 MG/ML VIAL 25 MG IM (21:30)
[2022-09-06] MEDS: HYDROcodone/acetaminophen (*CRX) 10-325 MG TABLET 1 TAB PO (21:30)
[2022-09-07] MEDS: HYDROcodone/acetaminophen (*CRX) 5-325 MG TABLET 1 TAB PO ×2 (01:02→07:50)
[2022-09-07] MEDS: hydrOXYzine HCl 50 MG/ML VIAL 25 MG IM (02:00)
[2022-09-07 05:46] LABS: Hematocrit 44.3 % (42.0-52.0); Hemoglobin 14.6 g/dL (14.0-18.0)
[2022-09-07 05:50] VITALS: BP 120/70; PULSE 66; RESP 18; TEMP 37; O2SAT 100
[2022-09-07 05:55] LABS: Anion Gap 3 mmol/L (8-16); Blood Urea Nitrogen 18 mg/dL (9-20); Calcium 8.4 mg/dL (8.4-10.2); Carbon Dioxide 31 mmol/L (22-30); Chloride 101 mmol/L (98-107); Estimated CRCL calculation 59 ml/min; Estimated Glomerular Filt Rate > 60; Glucose 84 mg/dL (65-110); Potassium 4.5 mmol/L (3.4-5.0); Sodium 135 mmol/L (137-145)
[2022-09-07] MEDS: buPROPion HCL XL (24 HR) 150 MG TABCR 300 MG PO (08:07)
[2022-09-07] MEDS: DULoxetine HCL 30 MG CAPSULE.DR PO (08:08)
[2022-09-07] MEDS: DOCUSATE SODIUM 100 MG CAPSULE PO ×2 (08:09→17:07)
--- NOTE | 2022-09-07 08:12 | WPDUROPN2 ---
Progress Note: A&P Assessment and Plan (1) BPH (benign prostatic hyperplasia): Code(s): N40.0 - Benign prostatic hyperplasia without lower urinary tract symptoms Status: Acute Assessment and Plan: Will attempt to wean CBI this morning. Re-evaluate this afternoon. If urine stays fairly clear to pink will discharge home with Kong catheter and have it removed on Monday or Monday next week. Patient may require another day if urine does not clear. Subjective Subjective Date/Time Seen: 09/07/22 08:12 Post Op day: 1 (Transurethral resection of prostate) Principal diagnosis: BPH Interval history: Coy is doing better this morning regarding pain control. I am told by the nurse that they were having difficulty getting the CBI to completely come off. At the time my evaluation his urine actually looks clear with minimal CBI. Review of Systems Review of Systems: All systems reviewed & are unremarkable except as noted in HPI and below Exam Const: General: cooperative and comfortable Chest: Chest palpation & inspection: normal inspection of the chest Resp: Effort & Inspection: normal respiratory effort Cardio: Rate: regular rate Rhythm: regular rhythm Urinary Catheter: Urinary Catheter: patent and draining and urine clear Objective Data Vital Signs Vital Signs: Vital Signs - 24 hr 09/06/22 10:58 09/06/22 17:09 09/06/22 17:25 Temperature 36.9 C 36.5 C Pulse Rate 62 74 72 Respiratory Rate 16 14 16 Blood Pressure 120/71 92/56 L 154/90 H Pulse Oximetry 99 100 100 Oxygen Delivery Room Air Simple Face Mask Room Air Oxygen Flow Rate 6 09/06/22 17:45 09/06/22 18:00 09/06/22 18:15 Temperature Pulse Rate 64 74 65 Respiratory Rate 17 23 H 20 Blood Pressure 123/112 H 148/95 H 146/86 H Pulse Oximetry 100 100 100 Oxygen Delivery Room Air Room Air Room Air Oxygen Flow Rate 09/06/22 18:30 09/06/22 18:45 09/06/22 18:59 Temperature 36.2 C L Pulse Rate 60 60 62 Respiratory Rate 16 17 20 Blood Pressure 136/86 148/84 H 147/93 H Pulse Oximetry 100 100 100 Oxygen Delivery Room Air Room Air Oxygen Flow Rate 09/06/22 19:14 09/06/22 19:44 09/06/22 20:44 Temperature 36.4 C 36.3 C L 36.6 C Pulse Rate 64 63 61 Respiratory Rate 18 18 18 Blood Pressure 115/85 150/76 H 161/73 H Pulse Oximetry 100 100 100 Oxygen Delivery Oxygen Flow Rate 09/06/22 23:26 09/07/22 05:50 Temperature 36.5 C 37.0 C Pulse Rate 66 66 Respiratory Rate 18 18 Blood Pressure 122/62 120/70 Pulse Oximetry 100 100 Oxygen Delivery Oxygen Flow Rate Intake/Output Intake/Output: Intake & Output 09/04/22 09/05/22 09/06/22 09/07/22 23:59 23:59 23:59 23:59 Intake Total 1730 50 Output Total 83371 9100 Balance -06701 -5008 Meds/Results Medications: Active Medications Generic Name Dose Route Start Last Admin Trade Name Freq PRN Reason Stop Dose Admin Hydrocodone Bitart/Acetaminophen 1 tab 09/06/22 18:59 09/07/22 07:50 Hydrocodone/Acetaminophen (*Crx) 5-325 Mg Tablet PO 1 tab Q4H PRN Administration Pain Rated 1-6 Hydrocodone Bitart/Acetaminophen 1 tab 09/06/22 20:47 09/06/22 21:30 Hydrocodone/Acetaminophen (*Crx) 10-325 Mg Tablet PO 1 tab Q6H PRN Administration Pain Rated 7-10 Bupropion HCl 300 mg 09/07/22 09:00 09/07/22 08:07 Bupropion Hcl Xl (24 Hr) 150 Mg Tabcr PO 300 mg QAM TERA Administration Cephalexin HCl 500 mg 09/07/22 13:00 Cephalexin 500 Mg Capsule PO QID TERA Docusate Sodium 100 mg 09/07/22 09:00 09/07/22 08:09 Docusate Sodium 100 Mg Capsule PO 100 mg BID TERA Administration Duloxetine HCl 30 mg 09/07/22 09:00 09/07/22 08:08 Duloxetine Hcl 30 Mg Capsule.Dr PO 30 mg DAILY TERA Administration Hydroxyzine HCl 25 mg 09/06/22 20:49 09/07/22 02:00 Hydroxyzine Hcl 50 Mg/Ml Vial IM 25 mg Q4H PRN Administration Anxiety Hyoscyamine 0.125 mg 09/06/22 18:59 Hyoscyamine Sulfate 0.
--- NOTE | 2022-09-07 08:38 | PC.NURSE ---
0757 Dr. Hoang at bedside. Asked RN to decrease flow rate of CBI
--- NOTE | 2022-09-07 09:46 | PC.NURSE ---
around 0920 patient reported 7/10 burning in penis with catheter. Patient has no pain medications due. Patient was assisted to chair for position change and tolerated well. Urology office paged to discuss patient's pain and to ask for additional order for pain control.
--- NOTE | 2022-09-07 09:50 | PC.NURSE ---
Patient reports that burning penile/urinary pain is improving to 4/10. Patient is currently ok to wait for next scheduled Hydrocodone but will call RN if pain/burning increases again. Patient was resting comfortably in the chair on assessment. Hygiene/pericare offered and patient declined until he receives next dose of pain medications.
--- NOTE | 2022-09-07 10:47 | PC.NURSE ---
s/w with Dannielle in urology office regarding patient's complaints of burning and his pain med schedule and chronic back pain. She will discuss with Dr. Sanchez or Tr the LAND APPRAISER and call back.
[2022-09-07] MEDS: HYDROcodone/acetaminophen (*CRX) 10-325 MG TABLET 1 TAB PO ×3 (11:30→22:59)
--- NOTE | 2022-09-07 11:44 | PC.NURSE ---
1132 Nevin Sales NATURAL GAS INSPECTOR with urology at bedside irrigating catheter as some mild clots had formed. she wanted CBI turned back on at slow for overnight not to wean until tomorrow AM. She wanted a NOW dose of his 10 mg Hydrocodone- Acetaminophen for the irrigation.
[2022-09-07] MEDS: CEPHALEXIN 500 MG CAPSULE PO ×3 (12:35→21:09)
[2022-09-07 14:00] VITALS: BP 127/77; PULSE 70; RESP 18; TEMP 37.5; O2SAT 99
--- NOTE | 2022-09-07 14:36 | WPDANESPN ---
Anes - Prog Note Post-Op Date/Time: 09/07/22 14:36 Vital Signs: Last Vital Signs Temp 37.5 C 09/07/22 14:00 Pulse 70 09/07/22 14:00 Resp 18 09/07/22 14:00 BP 127/77 09/07/22 14:00 Pulse Ox 99 09/07/22 14:00 O2 Del Method Room Air 09/06/22 18:45 O2 Flow Rate 6 09/06/22 17:09 Pain Score (VAS): 3 I/O: Intake & Output 09/06/22 09/07/22 09/07/22 23:59 07:59 15:59 Intake Total 1730 50 550 Output Total 85987 9100 4035 Balance -54821 -9050 -3485 Laboratory Tests 09/07/22 05:24 09/07/22 05:24 09/07/22 09/07/22 05:24 05:24 Hgb 14.6 Hct 44.3 Sodium 135 L Potassium 4.5 Chloride 101 Carbon Dioxide 31 H Anion Gap 3 L BUN 18 Creatinine 1.00 Estim Creat Clear Calc 59 Estimated GFR > 60 Glucose 84 Calcium 8.4 Patient Feedback: Patient satisfied with anesthetic care.
--- NOTE | 2022-09-07 14:51 | PC.NURSE ---
Lunch report given to Nieves ARSHAD while this RN off floor for lunch at [phone]
[2022-09-07 16:09] VITALS: TEMP 36.7
[2022-09-07 19:40] VITALS: BP 125/74; PULSE 69; RESP 20; TEMP 36.6; O2SAT 98
--- NOTE | 2022-09-07 20:00 | PC.NURSE ---
1939 report given and bedside hand off given to JEANCARLOS Rice.
[2022-09-07 21:58] VITALS: BP 126/85; PULSE 81; RESP 20; TEMP 36.8; O2SAT 98
[2022-09-08] MEDS: HYDROcodone/acetaminophen (*CRX) 10-325 MG TABLET 1 TAB PO ×2 (05:07→11:05)
[2022-09-08 05:50] VITALS: BP 139/83; PULSE 72; RESP 18; TEMP 37.6; O2SAT 99
[2022-09-08 08:24] VITALS: BP 127/77; PULSE 71; RESP 16; TEMP 36.8; O2SAT 97
--- NOTE | 2022-09-08 08:24 | PC.NURSE ---
0800 Dr. Sanchez at bedside. Reported to RN he clamped CBI and to monitor for hematuria and resume CBI if patient develops hematuria. STRUCTURAL STEEL PAINTER to round later today to assess for discharge.
[2022-09-08] MEDS: DULoxetine HCL 30 MG CAPSULE.DR PO (09:10)
[2022-09-08] MEDS: CEPHALEXIN 500 MG CAPSULE PO ×2 (09:10→13:02)
[2022-09-08] MEDS: DOCUSATE SODIUM 100 MG CAPSULE PO (09:11)
[2022-09-08] MEDS: buPROPion HCL XL (24 HR) 150 MG TABCR 300 MG PO (09:11)
--- NOTE | 2022-09-08 09:45 | PM.DS ---
DS: Admitting Diagnosis Discharge Date 09/08/22 Admitting Diagnosis BPH DS: Discharge Diagnosis Discharge Diagnosis (1) BPH (benign prostatic hyperplasia): Code(s): N40.0 - Benign prostatic hyperplasia without lower urinary tract symptoms Status: Acute DS: Summary Hospital Course Reason for hospitalization: TURP Hospital Course: Patient underwent a TURP with Dr. La Sanchez on 09/06/22 and tolerated the procedure well. He was then sent to recovery in stable condition and to the floor for further observation. Postoperative day one, he struggled with tolerating his post op pain and had blood in his urine when CBI was weaned off, as well as a poor appetite. He was able to walk short distances in the hallway but continued to have pretty severe pain and spasms. His pain is much better controlled today and he is tolerating his breakfast better. Activity is better tolerated today, blood in the urine is improved off of CBI and he wants to go home. He will go home with all previous home medications except to hold blood thinners until Monday09/12/22 to prevent post operative bleeding. He will be started on antibiotics, stool softener, continue pain medications and anti-spasmatic medication. He will then f/u on 09/14/22 for a cath removal with Nevin Sales SHRIMP PEELING MACHINE TENDER. He will resume activity as tolerated, no straining and no lifting >20lbs. Time spent discussing smoking cessation with patient: more than 10 minutes Status at Discharge Functional status at discharge: independent ambulation Time Spent with Patient Time attestation: Total time spent providing and/or coordinating discharge services: Time spent: Less than 30 minutes Exam Const: General: cooperative and comfortable Resp: Effort & Inspection: normal respiratory effort Cardio: Rate: regular rate GI: GI Palp: Yes Soft to palpation and No Tenderness to palpation present (GI) : General: Yes no CVA tenderness Back/Spine/Pelvis: Back: No CVA tenderness Extrem: Right lower extremity: no edema Left lower extremity: no edema DS: Data Data Completed and Pending Pending studies at discharge: Pending at discharge 09/06/22 16:35 Surgical [PTH] Routine Discharge Plan Discharge Attending physician on discharge: Jadon Sanchez Discharging Clinician: Nevin Sales Patient Disposition: Home, Self-Care Activity: may shower and no straining Diet: as tolerated Discharge Instructions: Follow up on 09/14/22 for your catheter removal in the office with Nevin Sales NP at 10:45am. Do not strain or lift >20lbs. Call the office or go to the ER if you develop a fever, severe abdominal pain, have grossly bloody urine, large clots in your urine, or if your catheter stops draining. Stand Alone Forms: Avoid NSAIDs, General Discharge Instructions Follow-up/Referrals: Jadon Sanchez MD [Physician] - Discharge Medications: New docusate sodium 100 mg Capsule 100 mg PO BID Qty: 10 0RF hyoscyamine sulfate [Anaspaz] 0.125 mg Tablet,Disintegrating 0.125 mg sublingual Q6H PRN (Reason: Bladder Spasm) Qty: 20 0RF sulfamethoxazole-trimethoprim [Bactrim] 400-80 mg tablet 1 tablet PO BID Qty: 10 0RF Continued hydrocodone-acetaminophen 10-325 mg tablet 1 tablet PO Q8H PRN (Reason: Pain) ascorbic acid (vitamin C) [Vitamin C] 500 mg Tablet 500 mg PO DAILY trazodone 50 mg tablet 100 mg PO QHS Linzess 72 mcg capsule 72 mcg PO DAILY PRN (Reason: IBS) bupropion HCl [Wellbutrin XL] 300 mg tablet extended release 24 hr 300 mg PO QAM duloxetine [Cymbalta] 30 mg capsule,delayed release(DR/EC) 30 mg PO DAILY Label Comments: BLAIR Date of admission: 09/07/22 13:52 Primary Care Provider: Mainor Torres Admitting Provider: Jadon Sanchez Attending physician on admission: Jadon Sanchez Condition: Improved
--- NOTE | 2022-09-08 13:00 | PC.NURSE ---
PAUL REGULATORY PROCESS MANAGER HERE TO SEE PT. PLAN DISCHARGE HOME. HAS TOLERATED CLAMPING OF FLUSH TO SORIANO THIS AM. URINE IS CLEAR YELLOW, NO CLOTS NOTED.
== END 2022-09-08 14:33 | disposition home or self-care (01) ==
LOC: ANHSURGERY 09-08 10:19 → ANHSUROVER 09-08 13:19
PROVIDERS: Admitting Provider Urology; PCP Family Medicine; Visit Provider Nurse Practitioner Adult Health
PROC: 0VT08ZZ Resection of Prostate, Via Natural or Artificial Opening Endoscopic (ICD-10-PCS; CPT 52601; principal; 2022-09-06 12:30)
DX: N40.0 Benign prostatic hyperplasia without lower urinary tract symptoms (principal); F41.9 Anxiety disorder, unspecified; G89.29 Other chronic pain; M54.50 Low back pain, unspecified; H91.90 Unspecified hearing loss, unspecified ear; I10 Essential (primary) hypertension; G47.00 Insomnia, unspecified; K74.60 Unspecified cirrhosis of liver; G47.33 Obstructive sleep apnea (adult) (pediatric); Z99.89 Dependence on other enabling machines and devices; F43.10 Post-traumatic stress disorder, unspecified; G25.81 Restless legs syndrome; E66.9 Obesity, unspecified; Z68.28 Body mass index [BMI] 28.0-28.9, adult; Z86.711 Personal history of pulmonary embolism; Z86.19 Personal history of other infectious and parasitic diseases; Z79.899 Other long term (current) drug therapy; Z87.891 Personal history of nicotine dependence; Z82.49 Family history of ischemic heart disease and other diseases of the circulatory system
CPT/HCPCS: 52601; 36415; 80048; 85014; 85018; 85025; 85610; 85730; 87086; 88305; A9270; G0378; G0379; J0690; J1170; J2175; J2250; J2270; J2405; J2704; J3010; J3410; J7120

== ENCOUNTER 2022-09-29 10:53 | Outpatient (CLI) | payer MEDICARE, SELFPAY ==
[2022-09-29 13:40] LABS: Free T4 Free Thyroxine 0.86 ng/mL (0.78-2.19)
== END 2022-09-29 10:54 | disposition home or self-care (01) ==
LOC: ANHWCLAB 10:56
PROVIDERS: PCP Family Medicine; Visit Provider Internal Medicine Endocrinology, Diabetes & Metabolism
DX: E04.2 Nontoxic multinodular goiter (principal)
CPT/HCPCS: 36415; 84439; 84443

== ENCOUNTER 2022-10-14 10:51 | Outpatient (CLI) | payer MEDICARE, SELFPAY ==
--- NOTE | ~2022-10-14 | US_ITS ---
US thyroid INDICATION: Nontoxic multinodular goiter. Previous benign biopsy of left thyroid nodule. TECHNIQUE: Real-time sonographic images of the thyroid gland were obtained. COMPARISON: Ultrasound dated 01/26/2022 FINDINGS: The right thyroid lobe measures 4.9 x 1.6 x 2.2 cm. The left thyroid lobe measures 8.9 x 4 x 4.9 cm. There are multiple bilateral thyroid nodules, largest on the right measures 1.6 x 1.3 x 1. 1 cm which is mixed solid and cystic, hypoechoic, wider than tall ill-defined margins and no internal echogenic foci, TR 3. There is a 1.3 x 1 x 0.8 cm oval hypoechoic mass with parallel orientation, il l-defined margins, TR 4. In the left lobe there is a large complex mixed solid and cystic mass measur ing 5.6 x 4.7 x 3.2 cm. This was previously biopsy proven benign. IMPRESSION: 1. Multinodular goiter with largest dominant mass in the left lobe not significantly changed from pr ior study allowing for differences of technique, previously biopsy-proven benign. Recommend follow-up ultrasound in 12 months. Reviewed, dictated and finalized at location A. UE PLACER IMPRESSION: 1. Multinodular goiter with largest dominant mass in the left lobe not signifi cantly changed from prior study allowing for differences of technique, previous ly biopsy-proven benign. Recommend follow-up ultrasound in 12 months.
== END 2022-10-14 10:52 | disposition home or self-care (01) ==
PROVIDERS: PCP Family Medicine; Visit Provider Internal Medicine Endocrinology, Diabetes & Metabolism
DX: E04.2 Nontoxic multinodular goiter (principal)
CPT/HCPCS: 76536

== ENCOUNTER 2023-02-27 04:19 | Day surgery (SDC) | payer MEDICARE, SELFPAY ==
[2023-02-20 10:54] VITALS: BMI 27.3
[2023-02-27 08:40] VITALS: BP 153/68; PULSE 60; RESP 18; TEMP 36.2; O2SAT 97; BMI 27.1
[2023-02-27] MEDS: LACTATED RINGERS 1,000 ML 150 ML IV CONT (09:00)
--- NOTE | 2023-02-27 09:31 | PM.HPGS ---
History of Present Illness History of Present Illness Consent: Risks, benefits, and alternatives have been discussed and questions answered. Patient agrees to proceed with procedure. Chief complaint: epigastric pain, GERD Narrative: Coy Rico is a 72 year old male Presents on referral from primary care service. Patient reports epigastric pain that began in November. He did go to the emergency room, [facility]. Patient reports that he has been on omeprazole. More recently was changed to Nexium. This is not affected this discomfort very much. He does take Mylanta intermittently in this appears to help some. A past was thought he had acid reflux. The ER recommended that an EGD be performed. Patient's stain is that pain intensifies when he moves. Less so when he eats. Over recent weeks he has noted concomitant nauseated feeling. He states he has a goiter. He occasionally will have difficulty swallowing and attributes this to his goiter. Patient denies any weight loss or bleeding. Family history is noncontributory. Review of Systems Review of Systems: Review of systems noncontributory. [facility] Past Medical History Medical History Anxiety BMI 27.0-27.9,adult BMI 28.0-28.9,adult BMI 29.0-29.9,adult Body mass index [BMI] 26.0-26.9, adult Chronic low back pain Groin pain H/O prostatic dysplasia History of hepatitis C [place] (hard of hearing) Hypertension Insomnia Liver cirrhosis WILBERT on CPAP PTSD (post-traumatic stress disorder) Pulmonary embolism Restless leg syndrome Thyroid nodule Surgical History Surgical History History of back surgery History of hernia repair Family History Family History Father Mother Hypertension Sibling COVID-19 Sibling Diabetes mellitus Hypertension Social History Social History Smoking packs per day: 1 Smoking cigarettes per day: 20.0 Years smoked: 20 Smoking pack-years: 20.00 Smoking status: Never smoker Tobacco type: cigarettes Second hand tobacco smoke exposure: No Smoking end date: 08/28/87 Alcohol intake: never Substance use: current Substance use type: opiates Other substance usage details: hydrocodone and oxycodone use for back pain Lack of Transportation: No Lack of Food: Never True Current Housing: I Do Not Have Housing Concerned About Future Housing: No Difficulty Paying Gas/Electric Bills: No Difficulty Paying for Meds: No Currently Unemployed: No Education: High School Diploma/GED Difficulty w/ Childcare or Family Care: No Living arrangements: with family Occupation/Education: retired 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 Gender identity (if verbalized by the patient): Male Spiritual care concerns: No Meds Home Medications and Allergies Home Medications Medication Instructions Recorded Confirmed Type ascorbic acid (vitamin C) 500 mg 500 mg PO DAILY 08/30/22 02/27/23 History tablet (Vitamin C) linaclotide 72 mcg capsule 72 mcg PO DAILY PRN IBS 08/30/22 02/27/23 History (Linzess) trazodone 50 mg tablet 100 mg PO QHS #180 tabs 09/16/22 02/27/23 Rx docusate sodium 100 mg capsule 100 mg PO BID #10 caps 01/03/23 02/27/23 Rx aspirin 81 mg tablet,delayed 81 mg PO DAILY 01/06/23 02/27/23 History release cyanocobalamin (vitamin B-12) 1,000 mcg PO DAILY 01/06/23 02/27/23 History 1,000 mcg capsule hydrocodone 10 mg-acetaminophen 1 tablet PO Q8H PRN Pain 01/06/23 02/27/23 History 325 mg tablet duloxetine 60 mg capsule,delayed 60 mg PO DAILY #30 caps 01/16/23 02/27/23 Rx release oxycodone myristate 13.5 mg 13.5 mg PO BID 02/03/23 02/27/23 History capsule sprinkle extend release 12hr(DON'T CRUSH) (X
--- NOTE | 2023-02-27 10:01 | WPDANESEPPF ---
Anes - Initial Pre Proc Eval Procedure: Operation Date: 02/27/23 10:00 Proposed Procedures p Esophagogastroduodenoscopy - Eric Wei MD Date/Time: 02/27/23 10:01 Surgeon: Eric Wei MD Pre Op Diagnosis: epigastric pain, GERD Patient Data Age: 72 Gender: M Height: 1.78 m Weight: 85.8 kg Last Vital Signs Temp 97.1 F L 02/27/23 08:40 Pulse 60 02/27/23 08:40 Resp 18 02/27/23 08:40 BP 153/68 H 02/27/23 08:40 Pulse Ox 97 02/27/23 08:40 O2 Del Method Room Air 02/27/23 08:40 Allergies Allergy/AdvReac Type Severity Reaction Status Date / Time No Known Allergies Allergy Verified 02/27/23 08:46 Home Medications Medication Instructions Recorded Confirmed Type ascorbic acid (vitamin C) 500 mg 500 mg PO DAILY 08/30/22 02/27/23 History tablet (Vitamin C) linaclotide 72 mcg capsule 72 mcg PO DAILY PRN IBS 08/30/22 02/27/23 History (Linzess) trazodone 50 mg tablet 100 mg PO QHS #180 tabs 09/16/22 02/27/23 Rx docusate sodium 100 mg capsule 100 mg PO BID #10 caps 01/03/23 02/27/23 Rx aspirin 81 mg tablet,delayed 81 mg PO DAILY 01/06/23 02/27/23 History release cyanocobalamin (vitamin B-12) 1,000 mcg PO DAILY 01/06/23 02/27/23 History 1,000 mcg capsule hydrocodone 10 mg-acetaminophen 1 tablet PO Q8H PRN Pain 01/06/23 02/27/23 History 325 mg tablet duloxetine 60 mg capsule,delayed 60 mg PO DAILY #30 caps 01/16/23 02/27/23 Rx release oxycodone myristate 13.5 mg 13.5 mg PO BID 02/03/23 02/27/23 History capsule sprinkle extend release 12hr(DON'T CRUSH) (Xtampza ER) bupropion HCl 300 mg 24 hr tablet, 300 mg PO QAM #90 tabs 02/14/23 02/27/23 Rx extended release (Wellbutrin XL) Patient hx anesthesia problems: none Family hx anesthesia problems: none Results Review: All pre-operative results and documents have been reviewed as part of the pre-operative evaluation. [facility] Past Medical History Medical History Anxiety BMI 27.0-27.9,adult BMI 28.0-28.9,adult BMI 29.0-29.9,adult Body mass index [BMI] 26.0-26.9, adult Chronic low back pain Groin pain H/O prostatic dysplasia History of hepatitis C [place] (hard of hearing) Hypertension Insomnia Liver cirrhosis WILBERT on CPAP PTSD (post-traumatic stress disorder) Pulmonary embolism Restless leg syndrome Thyroid nodule Surgical History Surgical History History of back surgery History of hernia repair Family History Family History Father Mother Hypertension Sibling COVID-19 Sibling Diabetes mellitus Hypertension Social History Social History Smoking packs per day: 1 Smoking cigarettes per day: 20.0 Years smoked: 20 Smoking pack-years: 20.00 Smoking status: Never smoker Tobacco type: cigarettes Second hand tobacco smoke exposure: No Smoking end date: 08/28/87 Alcohol intake: never Substance use: current Substance use type: opiates Other substance usage details: hydrocodone and oxycodone use for back pain Lack of Transportation: No Lack of Food: Never True Current Housing: I Do Not Have Housing Concerned About Future Housing: No Difficulty Paying Gas/Electric Bills: No Difficulty Paying for Meds: No Currently Unemployed: No Education: High School Diploma/GED Difficulty w/ Childcare or Family Care: No Living arrangements: with family Occupation/Education: retired 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
[2023-02-27] MEDS: BENZOCAINE (*SP) 60 ML SPRAY CAN (HURRICAINE) 1 SPRAY MUCOUS MEM (10:20)
--- NOTE | 2023-02-27 10:23 | SUR.OPER ---
Oral suction provided by MERCHANDISER SEASONAL due to excess secretions during procedure.
[2023-02-27 10:30] VITALS: BP 112/70; PULSE 70; RESP 24; O2SAT 100
[2023-02-27 10:40] VITALS: BP 129/74; PULSE 67; RESP 26; O2SAT 100
[2023-02-27 10:50] VITALS: BP 146/75; PULSE 60; RESP 28; O2SAT 100
== END 2023-02-27 10:55 | disposition home or self-care (01) ==
PROVIDERS: PCP Family Medicine; Visit Provider Internal Medicine Gastroenterology
PROC: 0DJ08ZZ Inspection of Upper Intestinal Tract, Via Natural or Artificial Opening Endoscopic (ICD-10-PCS; CPT 43235; principal; 2023-02-27 10:00)
DX: R10.13 Epigastric pain (principal); R13.10 Dysphagia, unspecified; K74.60 Unspecified cirrhosis of liver; G47.33 Obstructive sleep apnea (adult) (pediatric); G25.81 Restless legs syndrome; E04.2 Nontoxic multinodular goiter; F43.10 Post-traumatic stress disorder, unspecified; Z86.711 Personal history of pulmonary embolism; Z87.891 Personal history of nicotine dependence; Z79.891 Long term (current) use of opiate analgesic; Z79.82 Long term (current) use of aspirin
CPT/HCPCS: 43239; 43450; 87081; J2704; J7120

== ENCOUNTER 2023-03-14 12:34 | Outpatient (CLI) | payer MEDICARE, SELFPAY ==
--- NOTE | ~2023-03-14 | US_ITS ---
EXAMINATION: US thyroid DATE: 03/14/2023 14:39 INDICATION: Nontoxic multinodular goiter. TECHNIQUE: Multiple ultrasound images of the thyroid were obtained. COMPARISON: Ultrasound 10/14/2022 FINDINGS: The right thyroid lobe measures 5.0 x 1.6 x 2.0 cm. The left thyroid lobe measures 2.2 x 4.7 x 5.3 c m. In the right thyroid lobe, there is a 1.4 cm mixed cystic and solid, isoechoic, wider than tall n odule with smooth margin without echogenic foci (TI-RADS TR2). In the right thyroid lobe, there is a 1.3 cm mixed cystic and solid, isoechoic, wider than tall nodule with smooth margin without echogenic foci (TR2). In the left thyroid lobe, there is a 5.7 cm predominantly solid, hypoechoic, wider than tall nodule with smooth margin without echogenic foci (TR4), stable from 05/17/22 when biopsy was waqar gn. IMPRESSION: 1. Thyroid nodules, likely not clinically significant. Reviewed, dictated and finalized at location A.
== END 2023-03-14 12:35 | disposition home or self-care (01) ==
LOC: ANHIMG 12:35
PROVIDERS: PCP Family Medicine; Visit Provider Internal Medicine Endocrinology, Diabetes & Metabolism
DX: R13.10 Dysphagia, unspecified (principal); E04.2 Nontoxic multinodular goiter
CPT/HCPCS: 76536

== ENCOUNTER 2023-05-08 08:29 | Outpatient (CLI) | payer MEDICARE, SELFPAY ==
--- NOTE | ~2023-05-08 | XR_ITS ---
XR chest 2V 05/08/2023 08:42 Indication: Solitary pulmonary nodule Procedure: 2 view chest Comparison: Chest x-ray dated 03/25/[address] dated 04/12/2022 Findings: Heart size normal. Calcified granuloma left mid thorax. There are spinal stimulator leads o verlying the mid thoracic spine. There is a healed right eighth rib fracture. No focal air space dise ase, pulmonary edema, pleural effusion or suspected pneumothorax. Impression: 1: No acute cardiopulmonary disease. Reviewed, dictated and finalized at location B. Impression: 1: No acute cardiopulmonary disease.
== END 2023-05-08 08:30 | disposition home or self-care (01) ==
LOC: ANHIMG 08:31
PROVIDERS: PCP Family Medicine; Visit Provider Nurse Practitioner Family
DX: R91.1 Solitary pulmonary nodule (principal)
CPT/HCPCS: 71046

== ENCOUNTER 2023-06-08 12:43 | Outpatient (CLI) | payer MEDICARE, SELFPAY ==
[2023-06-08 15:21] LABS: Free T4 Free Thyroxine 0.85 ng/mL (0.78-2.19)
== END 2023-06-08 12:44 | disposition home or self-care (01) ==
LOC: ANHLAB 12:44
PROVIDERS: PCP Family Medicine; Visit Provider Internal Medicine Endocrinology, Diabetes & Metabolism
DX: E04.1 Nontoxic single thyroid nodule (principal); R13.10 Dysphagia, unspecified
CPT/HCPCS: 36415; 84439; 84443

== ENCOUNTER 2023-06-13 10:49 | Outpatient (CLI) | payer MEDICARE, SELFPAY ==
--- NOTE | ~2023-06-13 | CT_ITS ---
EXAMINATION:CT chest high resolution wo pa DATE: 06/13/2023 11:19 INDICATION: Solitary pulmonary nodule. TECHNIQUE: Computed tomography (CT) of the chest was performed without intravenous contrast. Automate d exposure control and iterative reconstruction technique were employed. The dose-length product (DLP ) was 229.11 mGy-cm. COMPARISON: Chest CT 04/12/2022 FINDINGS: Lungs demonstrate mild atelectasis. There is mild bronchiectasis in right middle lobe. A ca lcified left lung nodule and calcified left hilar and mediastinal lymph nodes are consistent with old granulomatous disease. There is a cluster of tree-in-bud opacities in left lower lobe. There is a cl uster of centrilobular nodules and tree-in-bud opacities in left upper lobe. There are changes of lef t hemithyroidectomy. The heart size is normal. There are coronary artery calcifications. No pericardi al effusion. There is mild bilateral gynecomastia. Epidural electrodes are noted. There is mild thora cic spondylosis. IMPRESSION: 1. Small clusters of nodules in left lung, new from 04/12/2022, likely infection. Reviewed, dictated and finalized at location E. IMPRESSION: 1. Small clusters of nodules in left lung, new from 04/12/2022, likely infection .
== END 2023-06-13 10:50 | disposition home or self-care (01) ==
PROVIDERS: PCP Family Medicine; Visit Provider Physician Assistant Medical
DX: R91.8 Other nonspecific abnormal finding of lung field (principal)
CPT/HCPCS: 71250

== ENCOUNTER 2023-07-05 08:42 | Outpatient (CLI) | payer MEDICARE, SELFPAY ==
--- NOTE | ~2023-07-05 | XR_ITS ---
Clinical Indication: Solitary pulmonary nodule PA and lateral view of the chest: Comparison: 05/08/2023 Findings: Calcified left midlung granuloma again noted. The lungs are otherwise clear, without eviden ce of focal consolidation or pleural effusion. Cardiomediastinal silhouette is within normal limits. Stable intrathecal wires. Bones and soft tissues are otherwise unremarkable. Impression: Stable calcified left midlung granuloma. Reviewed, dictated and finalized at location M. EATER Impression: Stable calcified left midlung granuloma.
== END 2023-07-05 08:43 | disposition home or self-care (01) ==
PROVIDERS: PCP Family Medicine; Visit Provider Physician Assistant Medical
DX: R91.1 Solitary pulmonary nodule (principal)
CPT/HCPCS: 71046

== ENCOUNTER 2023-08-14 07:18 | Outpatient (CLI) | payer MEDICARE, SELFPAY ==
[2023-08-14 09:32] LABS: Free T4 Free Thyroxine 1.07 ng/mL (0.78-2.19)
== END 2023-08-14 07:19 | disposition home or self-care (01) ==
LOC: ANHLAB 07:20
PROVIDERS: PCP Family Medicine; Visit Provider Internal Medicine Endocrinology, Diabetes & Metabolism
DX: E04.1 Nontoxic single thyroid nodule (principal)
CPT/HCPCS: 36415; 84439; 84443

== ENCOUNTER 2023-11-14 16:40 | Emergency (ER) | payer MEDICARE, SELFPAY ==
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
[2023-11-14 16:41] VITALS: BP 165/95; PULSE 97; RESP 17; TEMP 36.6; O2SAT 100
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
[2023-11-14] MEDS: MORPHINE SULFATE (*CRX) 4 MG/ML INJ IV PUSH (17:10)
[2023-11-14] MEDS: ONDANSETRON INJ 4 MG/2 ML VIAL IV PUSH (17:10)
[2023-11-14 17:30] LABS: Basophils Percent Auto 0.3 % (0.2-1.2); Eosinophils Absolute Auto 0.1 K/mm3 (0-0.3); Eosinophils Percent Auto 0.6 % (0-4.4); Hematocrit 45.5 % (42.0-52.0); Hemoglobin 15.3 g/dL (14.0-18.0); Immature Granulocyte Absolute 0.06 K/mm3 (0.00-0.031); Immature Granulocyte Percent A 0.4 % (0-0.5); Lymphocytes Absolute Auto 2.47 K/mm3 (0.9-3.2); Lymphocytes Percent Auto 17.7 % (18.3-44.2); Mean Corpuscular HGB Conc 33.6 g/dl (32-36); Mean Corpuscular Hemoglobin 30.8 pg (26-34); Mean Corpuscular Volume 91.5 fl (80-100); Mean Platelet Volume 9.6 fl (7.4-10.4); Monocytes Absolute Auto 1.3 K/mm3 (0.1-0.6); Platelet Count Result 258 k/mm3 (150-375); Red Blood Count 4.97 M/mm3 (4.6-6.20); Red Cell Distribution Width 13.6 % (11.5-14.5); White Blood Count 13.9 K/mm3 (4.5-10.0)
[2023-11-14 17:39] LABS: Prothrombin Time 13.3 Seconds (11.1-14.7)
[2023-11-14 17:40] LABS: Anion Gap 7 mmol/L (8-16); Blood Urea Nitrogen 30 mg/dL (9-20); Calcium 9.1 mg/dL (8.4-10.2); Carbon Dioxide 24 mmol/L (22-30); Chloride 104 mmol/L (98-107); Estimated CRCL calculation 55 ml/min; Estimated Glomerular Filt Rate > 60; Glucose 109 mg/dL (65-110); Partial Thromboplastin Time 29.1 Seconds (22.3-36.8); Potassium 3.8 mmol/L (3.4-5.0); Sodium 135 mmol/L (137-145)
[2023-11-14 18:29] VITALS: BP 154/87; PULSE 97; RESP 18; O2SAT 97
[2023-11-14] MEDS: HYDROmorphone HCL INJ (*CRX) 1 MG/ML SYR IV PUSH ×2 (18:29→20:39)
[2023-11-14] MEDS: SODIUM CHLORIDE 0.9% IV 1,000 ML 999 ML IV CONT (18:29)
[2023-11-14 18:30] VITALS: PULSE 105; RESP 18; O2SAT 95
[2023-11-14 18:31] VITALS: BP 130/91; PULSE 100; RESP 18; O2SAT 98
[2023-11-14 19:06] VITALS: BP 117/73; PULSE 98; RESP 22; O2SAT 96
[2023-11-14] MEDS: LACTATED RINGERS 1,000 ML 999 ML IV CONT (20:39)
[2023-11-14] MEDS: SILVER SULFADIAZINE 1% CR 50 GM JAR (*BKC) 1 APPLIC TOPICAL (20:40)
[2023-11-14 20:55] VITALS: BP 135/92; PULSE 82; RESP 20; O2SAT 99
== END 2023-11-14 21:09 | disposition short-term general hospital (02) ==
PROVIDERS: Emergency Provider Physician Assistant; PCP Family Medicine
DX: T24.332A Burn of third degree of left lower leg, initial encounter (principal); T31.0 Burns involving less than 10% of body surface; I10 Essential (primary) hypertension; N42.30 Unspecified dysplasia of prostate; K74.60 Unspecified cirrhosis of liver; G47.33 Obstructive sleep apnea (adult) (pediatric); G25.81 Restless legs syndrome; E89.0 Postprocedural hypothyroidism; Z86.711 Personal history of pulmonary embolism; Z86.19 Personal history of other infectious and parasitic diseases; Z87.891 Personal history of nicotine dependence; Z79.82 Long term (current) use of aspirin; X04.XXXA Exposure to ignition of highly flammable material, initial encounter
CPT/HCPCS: 36415; 80048; 85025; 85610; 85730; 93971; 96361; 96374; 96375; 96376; 99285; A9270; J1170; J2270; J2405; J7030; J7120

== ENCOUNTER 2024-03-11 08:27 | Outpatient (CLI) | payer MEDICARE, SELFPAY ==
[2024-03-11 08:58] LABS: Basophils Absolute Auto 0.1 K/mm3 (0.0-0.1); Basophils Percent Auto 0.7 % (0.2-1.2); Eosinophils Absolute Auto 0.1 K/mm3 (0-0.3); Eosinophils Percent Auto 1.8 % (0-4.4); Hematocrit 48.8 % (42.0-52.0); Immature Granulocyte Absolute 0.01 K/mm3 (0.00-0.031); Immature Granulocyte Percent A 0.1 % (0-0.5); Lymphocytes Absolute Auto 2.31 K/mm3 (0.9-3.2); Lymphocytes Percent Auto 32.2 % (18.3-44.2); Mean Corpuscular HGB Conc 32.8 g/dl (32-36); Mean Corpuscular Hemoglobin 29.7 pg (26-34); Mean Corpuscular Volume 90.7 fl (80-100); Mean Platelet Volume 10.2 fl (7.4-10.4); Monocytes Absolute Auto 0.6 K/mm3 (0.1-0.6); Monocytes Percent Auto 7.8 % (2.6-8.5); Neutrophils Absolute Auto 4.1 K/mm3 (1.3-6.7); Neutrophils Percent Auto 57.4 % (45.5-73.1); Platelet Count Result 221 k/mm3 (150-375); Red Blood Count 5.38 M/mm3 (4.6-6.20); Red Cell Distribution Width 14.2 % (11.5-14.5); White Blood Count 7.2 K/mm3 (4.5-10.0)
[2024-03-11 09:16] LABS: Alanine Aminotransferase 12 U/L (6-50); Albumin Level 4.8 g/dL (3.5-5.1); Alkaline Phosphatase 56 U/L (38-126); Anion Gap 12 mmol/L (4-12); Aspartate Amino Transferase 21 U/L (17-59); Bilirubin,Total 0.5 mg/dL (0.2-1.3); Blood Urea Nitrogen 18 mg/dL (9-20); Calcium 9.5 mg/dL (8.4-10.2); Carbon Dioxide 27 mmol/L (22-30); Chloride 102 mmol/L (98-107); Cholesterol 159 mg/dL (0-200); Estimated Glomerular Filt Rate > 60; Glucose 95 mg/dL (65-110); HDL Direct 49 mg/dL; Potassium 4.8 mmol/L (3.4-5.0); Sodium 141 mmol/L (137-145); Triglycerides 93 mg/dL (<150)
[2024-03-11 09:27] LABS: LDL Cholesterol Direct 98 mg/dL
[2024-03-11 09:45] LABS: Prostate Specific Antigen 1.9 ng/mL (< OR = 4.0)
[2024-03-11 09:58] LABS: Free T4 Free Thyroxine 1.01 ng/mL (0.78-2.19)
== END 2024-03-11 08:28 | disposition home or self-care (01) ==
LOC: ANHLAB 08:32
PROVIDERS: PCP Family Medicine; Referring Provider Physician Assistant Medical; Visit Provider Internal Medicine Endocrinology, Diabetes & Metabolism
DX: E04.2 Nontoxic multinodular goiter (principal); I10 Essential (primary) hypertension; N40.0 Benign prostatic hyperplasia without lower urinary tract symptoms; N40.1 Benign prostatic hyperplasia with lower urinary tract symptoms; R35.1 Nocturia; Z12.5 Encounter for screening for malignant neoplasm of prostate; E78.5 Hyperlipidemia, unspecified
CPT/HCPCS: 36415; 80053; 80061; 84153; 84439; 84443; 85025; G0103

== ENCOUNTER 2024-04-05 10:47 | Outpatient (CLI) | payer MEDICARE, SELFPAY ==
[2024-04-05 11:10] LABS: Basophils Percent Auto 0.6 % (0.2-1.2); Eosinophils Absolute Auto 0.1 K/mm3 (0-0.3); Eosinophils Percent Auto 1.6 % (0-4.4); Hematocrit 46.6 % (42.0-52.0); Hemoglobin 15.3 g/dL (14.0-18.0); Immature Granulocyte Absolute 0.01 K/mm3 (0.00-0.031); Immature Granulocyte Percent A 0.1 % (0-0.5); Lymphocytes Absolute Auto 2.61 K/mm3 (0.9-3.2); Lymphocytes Percent Auto 37.7 % (18.3-44.2); Mean Corpuscular HGB Conc 32.8 g/dl (32-36); Mean Corpuscular Hemoglobin 29.5 pg (26-34); Mean Platelet Volume 9.6 fl (7.4-10.4); Monocytes Absolute Auto 0.6 K/mm3 (0.1-0.6); Monocytes Percent Auto 8.8 % (2.6-8.5); Neutrophils Absolute Auto 3.6 K/mm3 (1.3-6.7); Neutrophils Percent Auto 51.2 % (45.5-73.1); Platelet Count Result 213 k/mm3 (150-375); Red Blood Count 5.18 M/mm3 (4.6-6.20); Red Cell Distribution Width 14.3 % (11.5-14.5); White Blood Count 6.9 K/mm3 (4.5-10.0)
[2024-04-05 11:12] LABS: Add Urine Microscopic? NO; Appearance Urine Clear (Clear); Bilirubin Urine Negative (Negative); Blood Urine Negative (Negative); Color Urine Yellow (Yellow); Glucose Urine UA Negative (Negative); Ketones Urine Trace mg/dL (Negative); Leukocyte Esterase Ur Negative LEU/UL (Negative); Nitrate Urine Negative (Negative); Protein Urine Negative (Negative); Specific Grav Ur 1.022 (1.001-1.035); pH Urine 5.5 (5.0-9.0)
[2024-04-05 11:24] LABS: Anion Gap 10 mmol/L (4-12); Blood Urea Nitrogen 22 mg/dL (9-20); Calcium 9.5 mg/dL (8.4-10.2); Carbon Dioxide 27 mmol/L (22-30); Chloride 102 mmol/L (98-107); Estimated Glomerular Filt Rate > 60; Glucose 89 mg/dL (65-110); Potassium 4.7 mmol/L (3.4-5.0); Sodium 139 mmol/L (137-145)
== END 2024-04-05 10:48 | disposition home or self-care (01) ==
PROVIDERS: PCP Family Medicine; Visit Provider Anesthesiology Pain Medicine
DX: Z01.818 Encounter for other preprocedural examination (principal)
CPT/HCPCS: 36415; 80048; 81003; 85025

== ENCOUNTER 2024-12-06 15:27 | Outpatient (CLI) | payer MEDICARE, SELFPAY ==
--- OUTSIDE RECORDS SUMMARY | 2024-12-06 15:31 | XMS_ITS | CONTINUITY OF CARE DOCUMENT ---
Author Name elle almeida Address Unknown Organization [facility] Address [address] [place] [address] Phone [phone] Care Team Providers Care Associate Web Developer Name Role Phone Messi BERGERON, Darshana Unavailable EDGARDO BERGERON, HEIDY Unavailable [phone] HIEDY REYNOSO MD Unavailable [phone] PROBLEMS Condition Status Date Provider Notes RHEUMATIC FEVER, HX OF active Ines Stanyasias chmidt RAYNAUD'S SYNDROME, HX OF active Ines Sta hlschmidt TOBACCO USE QUIT active Ines Stahlschmidt Chest pain--nl nuc and echo, 03/2023 active Saravanan Oliveira Pulmonary embolism active Darshana Swenson MD Shortness of breath (SOB) min obstruction active 04/07 Darshana Swenson MD WILBERT--not on cpap active Saravanan Oliveira ENCOUNTERS Date Type Provider Location Encounter Diagnosis - In-person encounter Office Visit Darshana Swenson MD [facility] Chest pain--nl nuc and echo, 03/2023[facility]--not on cpap - In-person encounter Office Visit Darshana Swenson MD [facility] - In-person encounter Office Visit Darshana Swenson MD [facility] Shortness of breath (SOB) min obstructionOSA--no t on cpap - In-person encounter Office Visit Darshana Swenson MD [facility] Chest pain--nl nuc and echo, ulmonary embolism - In-person encounter Office Visit Darshana Swenson MD [facility] Chest pain--nl nuc and echo, 03/2023 - In-person encounter Office Visit Darshana Swenson MD [facility] VITAL SIGNS Date Observation Value Provider Body Mass Index (Ratio) 26.36 kg/m2 Andrade Swenson MD blood pressure, cuff size regular Ja rret blood pressure, diastolic 81 mm[Hg] Ja rret blood pressure, systolic 138 mm[Hg] [facility] pulse rate 70 /min [facility] y oxygen saturation, oximetry 97 % [facility] respiratory rate E&M 12 /min [facility] weight E&M 189 [lb_av] [facility] y height E&M 71 [in_i] [facility] y Body Mass Index (Ratio) 29.56 kg/m2 Andrade Swenson MD oxygen saturation, oximetry 98 % [facility] pulse rate 96 /min [facility] respiratory rate E&M 18 /min [facility] blood pressure, diastolic 87 mm[Hg] To [facility] blood pressure, systolic 145 mm[Hg] [facility] weight E&M 212 [lb_av] [facility] height E&M 71 [in_i] [facility] Body Mass Index (Ratio) 31.66 kg/m2 Andrade Swenson MD blood pressure, diastolic 99 mm[Hg] [facility] blood pressure, systolic 140 mm[Hg] [facility] weight E&M 227 [lb_av] [facility] height E&M 71 [in_i] [facility] oxygen saturation, oximetry 95 % [facility] pulse rate 91 /min [facility] respiratory rate E&M 16 /min [facility] blood pressure, resting Yes [facility] temperature site temporal Brianda Tank sley temperature E&M 97.3 [degF] Brianda Tanks janiya oxygen saturation, oximetry 97 % Sandi Murillo MA blood pressure, diastolic 83 mm[Hg] Margaret lopezese Murillo MA blood pressure, systolic 126 mm[Hg] Serg brit Murillo MA pulse rate 93 /min Sandi Murillo MA respiratory rate E&M 18 /min Sandi Murillo MA weight E&M 211 [lb_av] Sandi Chidi KELLY blood pressure, diastolic 92 mm[Hg] Ca ndace Eva blood pressure, systolic 156 mm[Hg] Can dacterell Velasquez oxygen saturation, oximetry 96 % Sandi Murillo MA blood pressure, diastolic 94 mm[Hg] Margaret scott Chidi KELLY blood pressure, systolic 149 mm[Hg] Serg brit Murillo MA pulse rate 92 /min Sandi Murillo MA respiratory rate E&M 16 /min Sandi Chidi KELLY weight E&M 222 [lb_av] Sandi Chidi KELLY ALLERGIES No Known Drug Allergies HISTORY OF MEDICATION USE Medication Status Instructions Dates Provider Indications Com ments trazodone 50 mg tablet active Saravanan Dawsonzavira bupropion HCl 300 mg tablet extended release 24 hr active Saravanan Dawsonzavira duloxetine 60 mg capsule,delayed release(DR/EC) active Saravanan Dawsonzai Xtampza ER 18 mg cap,sprinkl,ER1 2hr(DONT CRUSH) active Saravanan Dawsonzavira oxycodone 5 mg tablet active Saravanan Dawsonzai morphine 15 mg tablet extended release active Saravanan Dawsonzai hydrocodone-domingo taminophen 10-325 mg tablet active Saravanan Dawsonzavira nifedipine 30 mg tablet extended release active Saravanan Dawsonzavira Xarelto 15 mg tablet completed 1 tablet every night - Saravanan Oliveira FISH OIL CAPSULE completed 1300mg once daily - Eric Alexandr Betancourtty BUSPAR 15 MG TABS completed one tab twice daily - Sandi Murillo MA SKELAXIN TABLET completed - Sandi Murillo MA TRAMADOL HCL 50 MG ORAL TABLET completed every 8 hours - Eric Marshall Procardia XL 60 mg tablet extended release 24hr completed once a day - Saravanan Oliveira ASPIRIN 81 MG ORAL TABLET completed 1 tablet once a day - Saravanan Oliveira SOCIAL HISTORY Date Observation Value Provider social history reviewed E&M revi ewed - no changes required Saravanan Oliveira social history reviewed E&M revi ewed - no changes required Saravanan stacia number of grandchildren Darshana Swenson MD M joaquim Marshall drug use none Eric Marshall social history E&M Marital Statu s: E thnicity: Smoking History: P daljit is a former smoker. Eric Marshall social history reviewed E&M revi ewed - no changes required Eric Marshall physical exercise, f requency, days per week no [facility] caffeine use, averag e drinks per day yes [facility] smoking, [facility], date started [facility] smoking history, tot al pack/year 365 [facility] smoking history, total pack/day 1 [facility] cigarette use yes [facility] smoking status Former smoker [facility] social history E&M Marital Statu s: E thnicity: Smoking History: P daljit is a former smoker. Darshana Swenson MD social history reviewed E&M revi ewed - no changes required Darshana Swenson MD smoking history, tot al pack/year 365 [facility] smoking history, total pack/day 1 [facility] smoking, year quit 1987 [facility] smoking, date started 1964 [facility] cigarette use yes [facility] smoking status Former smoker [facility] physical exercise, f requency, days per week no [facility] caffeine use, averag e drinks per day yes [facility] social history reviewed E&M reviewed Darshana Swenson MD social history E&M Marital Statu s: E thnicity: Darshana Swenson MD drug use none Darshana Swenson MD social history reviewed E&M reviewed Darshana Swenson MD physical exercise, f requency, days per week no [facility] caffeine use, averag e drinks per day yes [facility] alcohol use, average drinks per day none [facility] smoking status Non-smoker [facility] physical exercise, f requency, days per week no [facility] caffeine use, averag e drinks per day yes [facility] alcohol use, average drinks per day none [facility] smoking status Non-smoker [facility] FUNCTIONAL STATUS Date Observation Value Provider periodic limb movement index absent (0) Trang Velasquez MENTAL STATUS Date Observation Value Provider assessment of judgme nt and insight E&M Alert and oriented to time, place and person. Mood and affect are normal. Darshana Swenson MD assessment of judgme nt and insight E&M Alert and oriented to time, place and person. Mood and affect are normal. Darshana Swenson MD INSURANCE PROVIDERS Payer name Policy type / Coverage type Walker red libertarian ID A[employer] MEDICARE ADVANTAGE HMO-POS HMO [id number] ADVANCE DIRECTIVES Name Date DISCUSSED - NO DECISION MADE TREATMENT PLAN Date Name Performer [id number] Riaz Ahmedza i [id number] Riaz Ahmedza i [id number],S, Saravanan Dawsonza i [id number],S, Saravanan Gomes i [id number],S, Saravanan Gomes i Cardiology Saravanan Dawsonzai Cardiology Saravanan Dawsonzai Cardiology Saravanan Gomesi Cardiology Saravanan Gomesi Cardiology Saravanan Gomesi Telehealth - Darshana Swenson MD Telehealth - Darshana Swenson MD Telehealth - Darshana Swenson MD Telehealth - Darshana Swenson MD Cardiology Eric Marshall Cardiology:Will obtain PFTs Eric Marshall Cardiology:Will obta in stress regadenosen to evaluate possible ischemia. His pulse today is 96 and he has been experiencing SOB. He was in the hospital in 11/2019 where he recieved an echo which was unremarkable. Chloesterol was also checked, LDL was 83. Eric Marshall Cardiology:Patient i s on partial face CPAP, will obtain full face CPAP which he will tolerate better. WILBERT may be contributing to his exertional SOB. Eric Marshall Cardiology Darshana Swenson MD Cardiology Darshana Swenson MD Cardiology Darshana Swenson MD FU: H is updated medication list for this problem includes: Aspirin 81 Mg Tabs (Aspirin) ..... One tab. daily Procardia Xl 60 Mg [id number]-[id number] (Nifedipine) ..... Once daily BP today: 126/83 Prior BP: 156/92 (07/15/2011) N uclear Stress Findings: 1. Normal Fernandez protocol exercise tolerance test. 2 . Normal left ventricular size and function with a calculated ejection fraction of 72%. 3 . Myocardial scintigraphy is normal without evidence for previous myocardial infarction or reversible ischemia. [facility] (10/27/2008) E chocardiogram: Normal right and left ventricular systolic function. Left ventricular ejection fraction is estimated at 60%. There is impaired LV relaxation. The left atrium is normal in size. There is non-specific thickening of the mitral valve leaflets with Mild anterior leaflet p rolapse. There is mild mitral valve regurgitation. There is trace tricuspid valve regurgitation. Right ventricular systolic pressure is within normal limits. IVC is normal in size with normal respiratory response. There is moderate pulmonic regurgitation. - CNE (07/15/2011) Darshana Swenson MD FU: H is updated medication list for this problem includes: Aspirin 81 Mg Tabs (Aspirin) ..... One tab. daily Procardia Xl 60 Mg [id number] (Nifedipine) ..... Once daily BP today: 126/83 Prior BP: 156/92 (07/15/2011) N uclear Stress Findings: 1. Normal Fernandez protocol exercise tolerance test. 2 . Normal left ventricular size and function with a calculated ejection fraction of 72%. 3 . Myocardial scintigraphy is normal without evidence for previous myocardial infarction or reversible ischemia. [facility] (10/27/2008) E chocardiogram: Normal right and left ventricular systolic function. Left ventricular ejection fraction is estimated at 60%. There is impaired LV relaxation. The left atrium is normal in size. There is non-specific thickening of the mitral valve leaflets with Mild anterior leaflet p rolapse. There is mild mitral valve regurgitation. There is trace tricuspid valve regurgitation. Right ventricular systolic pressure is within normal limits. IVC is normal in size with normal respiratory response. There is moderate pulmonic regurgitation. - CNE (07/15/2011) Darshana Swenson MD FU: H is updated medication list for this problem includes: Aspirin 81 Mg Tabs (Aspirin) ..... One tab. daily Procardia Xl 60 Mg [id number] (Nifedipine) ..... Once daily BP today: 126/83 Prior BP: 156/92 (07/15/2011) N uclear Stress Findings: 1. Normal Fernandez protocol exercise tolerance test. 2 . Normal left ventricular size and function with a calculated ejection fraction of 72%. 3 . Myocardial scintigraphy is normal without evidence for previous myocardial infarction or reversible ischemia. [facility] (10/27/2008) E chocardiogram: Normal right and left ventricular systolic function. Left ventricular ejection fraction is estimated at 60%. There is impaired LV relaxation. The left atrium is normal in size. There is non-specific thickening of the mitral valve leaflets with Mild anterior leaflet p rolapse. There is mild mitral valve regurgitation. There is trace tricuspid valve regurgitation. Right ventricular systolic pressure is within normal limits. IVC is normal in size with normal respiratory response. There is moderate pulmonic regurgitation. - CNE (07/15/2011) Darshana wSenson MD FU: H is updated medication list for this problem includes: Aspirin 81 Mg Tabs (Aspirin) ..... One tab. daily Procardia Xl 60 Mg [id number] (Nifedipine) ..... Once daily Darshana Swenson MD FU: T he following medications were removed from the medication list: Buspar 15 Mg Tabs (Buspirone hcl) ..... One tab twice daily His updated medication list for this problem includes: Aspirin 81 Mg Tabs (Aspirin) ..... One tab. daily Procardia Xl 60 Mg [id number]-[id number] (Nifedipine) ..... Once daily Darshana Swenson MD FU: T he following medications were removed from the medication list: Buspar 15 Mg Tabs (Buspirone hcl) ..... One tab twice daily His updated medication list for this problem includes: Aspirin 81 Mg Tabs (Aspirin) ..... One tab. daily Procardia Xl 60 Mg [id number] (Nifedipine) ..... Once daily BP today: 149/94 Prior BP: / () N uclear Stress Findings: 1. Normal Fernandez protocol exercise tolerance test. 2 . Normal left ventricular size and function with a calculated ejection fraction of 72%. 3 . Myocardial scintigraphy is normal without evidence for previous myocardial infarction or reversible ischemia. [facility] (10/27/2008) Darshana Swenson MD Date Name DLCO - 14363 FRC - 86909 FVC - 66976 Stress Regadenoson HISTORY OF PROCEDURES Procedure Date Procedure Name Provider Procedure Notes S tatus Regadenoson, 4 units Darshana Swenson MD completed Cardiolite, 2 units Darshana Swenson MD completed SPECT Images Darshana Swenson MD complet ed Stress EKG Darshana Swenson MD completed FVC / MVV with bronchodilator - 86584 Darshana Swenson MD completed BLOOD COUNT HEMOGLOBIN Darshana Swenson MD completed FRC - 23072 Darshana Swenson MD complete d SpO2 w/o 6min walk/titration Darshana Swenson MD completed DLCO - 88089 Darshana Swenson MD complet ed EKG Darshana Swenson MD completed EKG Darshana Swenson MD completed
--- OUTSIDE RECORDS SUMMARY | 2024-12-06 15:31 | XMS_ITS | Continuity of Care Document ---
Author Organization [facility] Address [address] [place] [address] Phone Care Team Providers Care Chief Analytics Officer Name Role Phone Macdonald OD, Eric Unavailable Unavailable Procedures Procedure Date Office/outpatient Visit, Est Advance Directives Directive Yes / No Effective Date File Name No Information Encounters Encounter Description Practice Location Reason(s) For Visit Diagnoses Date Provider Providers Copied on Encounter Office/outpat ient Visit, Est [facility], [address] [place], [place], [id number], [place] tel:[phone] [facility] No Information 4-200 7 Macdonald OD Eric. [address], [place], [address], [place]. tel:[phone] Family History Family Member Type Diagnosis Age At Onset No Information Payers Payer name Insurance type Covered alliance party ID Authoriza tion(s) No Information Social History Type Description Quantity Date Captured Comments Sex Male Smoking Status No Information Chief Complaint And Reason For Visit No Information Reason For Referral Reason For Referral No Information History Of Present Illness Encounter Date Complaint History Of Prese nt Illness No Information Functional Status Date Functional Assessmen t No Information Instructions Date Instruction Additional Infor mation No Information Assessments Type Assessment Date No Information Patient Care Teams Name Effective Dates (start - stop) Status Members No Information
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
--- OUTSIDE RECORDS SUMMARY | 2024-12-06 15:32 | XMS_ITS | Encounter Summary ---
Author Organization [facility] Healthcare Address [facility] [place] [address] Care Team Providers Care Scale Adjuster Name Role Phone Seymour Oconnor MD Primary Care Provider Bharathi Garsia RN Unavailable [facility] Mainor Munoz MD Primary Care Provider [phone] Mike Fritz NP Unavailable [phone] Trae Hernandes MD Unavailable [phone] Encounter Details Date Type Department Care Team (Late st Contact Info) Description 03/14/2019 Telephone [facility] [place] [id number] [address] oJ[address] Samuel Social History Tobacco Use Types Packs/Day Years Used Date Smoking Tobacco: Former Smokeless Tobacco: Current Alcohol Use Standard Drinks/Week Comments No 0 (1 standard drink = 0.6 oz pur e alcohol) Sex and Gender Information Value Date Recorded Sex Assigned at Not on file Legal 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 Author BH-Pain Behavioral Health No Bharathi Garsia, RN Note: Patient will describe how unrelieved pain will be managed. CCM Chronic Pain Care Plan Chronic Care Management Yes Nilda Hartmann RN Note: Problem: Chronic Pain Goals: 1. Minimize further functional decline 2. Maximize quality of life 3. Control pain Strategies: - Activity/exercise program recommendation - Conservative stepwise pain medicine strategy with multi-disciplinary approach - Recommend healthy lifestyle strategies and compensatory methods as needed Reduce the likelihood of falling Lifestyle Donna Sales, RN Note: Below are four things you can [...] on stairs Contact your local community or [facility] for information on exercise, fall prevention programs, or options for improving home safety. documented as of this encounter Visit Diagnoses Not on filedocumented in this encounter Care Teams Scale Adjuster Relationship Specialty Start Date End Date Seymour Oconnor MD PCP - General 10/21/16 09/27/23 Mainor Torres MD PCP - General Family Medicine 09/28/23 Bharathi Garsia, RN Registered Nurse 10/10/17 06/02/24 [place] [id number] [address] [facility] [address] [place] [address] Nurse Practitioner Nurse Practitioner 06/03/24 [place] [id number] [address] [facility] [address] [facility] [place] [address] Consulting Physician Pain Management 10/08/24 documented as of this encounter
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
--- OUTSIDE RECORDS SUMMARY | 2024-12-06 15:32 | XMS_ITS | Referral Summary ---
Author Organization [facility] Address [address] [place] [address] Care Team Providers Care Drafter Electrical Name Role Phone Mainor Torres MD Primary Care Provider [phone] Mike Fritz POLICE AIDE Unavailable Trae Hernandes MD Unavailable Encounters Date Type Department Care Team Description 11/05/2024 10:15 AM CDT - 11/05/2024 11:59 PM CDT Hospital Encounter [facility] [address] [place] [phone] Mike Fritz NP Lumbar post-laminectomy syndrome (Primary Dx); Lumbar radiculopathy Discharge Disposition: Discharge to home or self care 10/08/2024 10:09 AM MANAGEMENT ARCHITECT - 10/08/2024 11:59 PM MANAGEMENT ARCHITECT Hospital Encounter [facility] [address] [place] [phone] Mike Fritz NP Postlaminectomy syndrome of lumbar region (Primary Dx); Lumbar radiculopathy; Sacroiliitis; Chronic pain syndrome; Myofascial pain Discharge Disposition: Discharge to home or self care from Last 3 Months Allergies No known active allergies Medications esomeprazole [...] opiate analgesic 09/27/2018 Chronic pain syndrome 09/27/2018 Social History Tobacco Use Types Packs/Day Years [...] you are drinking? Patient does not drink 4 Frequency of Binge Drinking Not on file 03/29 Personal Safety Answer Date Recorded Have you ever been in or are you currently in a harmful physical or emotional relationship or is someone making you feel afraid or unsafe? Denies 04/18/2024 Sex and Gender Information Value Date Recorded Sex Assigned at Not on file Legal Sex Male 9:16 AM MANAGEMENT ARCHITECT Gender Identity Not on file Sexual Orientation [...] 04/18/2024 11:45 AM CDT Plan of Treatment Not on file Goals Goal Patient Goal Type Associated Problems [...] on stairs Contact your local community or senior center for information on exercise, fall prevention programs, or options for improving home safety. Medical Devices Implanted Type Area Field Hockey And Lacrosse Coach Device Identifier Shelf Expiration Date Model / Serial / Lot Spinal Cord Stimulator Lead ([id number]) Lead Spine Lumbar [employer]- [id number] / / Spinal Cord Stimulator Lead ([id number]) Lead Spine Lumbar [employer]- [id number] / / Spinal Cord Stimulator-12/08 Implanted:12/08 by Manasa Rivera MD (Quantity not on file) Spinal Cord Stimulator Left: Thoracic- Lumbar Spine [employer]- [id number] / [id number] / Description: 01/05/23 currently off 11/17/22-Pt not [...] Programmable Ulp Ami 20ml Volume 8667-20 - [id number] Implanted:Qty: 1 on 04/18/2024 by Trae Hernandes MD at [facility] [employer] X 8667-20 / / Insurance [facility] MEDICARE ADVANTAGE [facility] MEDICARE ADVANTAGE Care Teams Drafter Electrical Relationship Specialty Start Date End Date Mainor Torres MD PCP - General Family Medicine 09/28/23 [place] [id number] [address] [facility] [address] [place] [address] Nurse Practitioner Nurse Practitioner 06/03/24 [place] [id number] [address] [facility] [address] [place] [place] [address] Consulting Physician Pain Management 10/08/24
--- OUTSIDE RECORDS SUMMARY | 2024-12-06 15:32 | XMS_ITS | Clinical Summary ---
Author Organization [facility] Address [address] [place] [address] Care Team Providers Care Master Glazier Name Role Phone Manasa Rivera MD Unavailable [phone] Mainor Torres MD Primary Care Provider [phone] Source Comments [facility],non-owned Affiliates and Associated Physician Practices is amultiple site organization consisting of ambulatory clinics and hospital sitesin [place], [place], [place] and [place]. This disclosure is being madepursuant to the Care Everywhere program and may not contain all information available regarding this patient. Last updated 18.[facility] Allergies No known active allergies Medications * Be aware that medications may not be up to date on this document. Alwaysverify current medications with the patient. Medication Sig Dispensed Refills Start Date End Date Status Esomeprazole Magnesium (NEXIUM PO) Take by mouth as needed Active Venlafaxine HCl (EFFEXOR PO) Take 225 mg by mouth once daily Active carbidopa-levod opa (SINEMET) 10-100 MG tablet at bedtime 10/10/2018 Active amLODIPine (NORVASC) 10 MG tablet amlodipine 10 mg tablet TAKE 1 TABLET BY MOUTH EVERY DAY 05/23/2020 Active hydroCHLOROthia zide (MICROZIDE) 12.5 MG capsule hydrochlorothiazide 12.5 mg capsule TAKE 1 CAPSULE BY MOUTH EVERY DAY IN THE MORNING 08/02/2020 Act ayesha HYDROcodone-domingo taminophen (NORCO) 10-325 MG tablet TAKE ONE TABLET BY MOUTH EVERY 6 HOURS NEEDED 02/25/2021 Acti ve DULoxetine (Cymbalta) 60 MG capsule Take 1 (one) capsule by mouth once daily 01/16/2023 Active traZODone (Desyrel) 50 MG tablet Take 1 (one) tablet by mouth at bedtime 04/19/2022 Active buPROPion XL 24hr (Wellbutrin-XL) 300 MG tablet Take 1 (one) tablet by mouth every morning 02/14/2023 Active Ascorbic Acid (VITAMIN C PO) Take 1 tablet by mouth as directed Active Cyanocobalamin (VITAMIN B-12 PO) Take 1 tablet by mouth as directed Active aspirin EC (Ecotrin) 81 MG tablet Take 1 (one) tablet by mouth once daily Active morphine CR 12hr (MS Contin) 15 MG tablet Take 1 (one) tablet by mouth 2 times daily 05/10/2023 Active oxyCODONE, immediate release, (Roxicodone) 5 MG tabletIndicatio ns:Substernal goiter Take 1 (one) tablet by mouth every 4 hours as needed 24 tablet 05/19/2023 Active acetaminophen (Tylenol) 325 MG tablet Take 2 (two) tablets by mouth every 6 hours Maximum allowable Acetaminophen amount = 4 Grams (4000 mg) / 24 hours. 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 Lumbar stenosis 05/14/2013 Foraminal stenosis of lumbar region 04/23/2013 Thoracic or lumbosacral neur itis or radiculitis, unspecified 03/21/2013 Other symptoms referable to back 03/21/2013 Lumbosacral facet joint syndrome 03/11/2013 Lumbar stenosis 03/11/2013 Spondylolisthesis 03/11/2013 Lumbago 08/16/2012 Preoperative examination 11/02/2009 Immunizations Name Administration Dates Next Due Covid Moderna primary monova lent 12+ yr 0.5mL 02/22/2022 Covid Pfizer primary monoval ent 12+ yr 0.3mL Purple cap 06/28/2021,11/05/2020,10/15/2020,2020,09/17/2020 FLU VACCINE TRI IIV3 SPLIT I M (FLUVIRIN) 06/24/2014 HEP B VACCINE, ADULT 3 DOSE 09/28/2021, INFLUENZA F2G1-21, HISTORIC VACCINE 06/17/2020 INFLUENZA VACCINE 06/28/2021, 0,06/28/2019,2016 INFLUENZA VACCINE, HIGH-DOSE , QUADR. (FLUZONE HIGH-DOSE QUADRIVALENT; 65Y+), 0.7 ML (HD-IIV4) 07/14/2022,07/17/2019,06/01/2018,2016 INFLUENZA VACCINE, HIGH-DOSE , TRIV. (FLUZONE HIGH-DOSE TRIVALENT; 65Y+) (HD-IIV3) 06/01/2018,06/27/2017 PNEUMOCOCCAL PPSV23 02/25/2021 PNEUMOCOCCAL PPV VACCINE 01/01/2015 Pneumococcal Pcv13 Conj 06/24/2014 TDAP (7yrs+) 02/22/2018 Zoster Hzv Vacc Recombinant Inj Im 08/26/2021, Social History Tobacco Use Types Packs/Day Years Used Date Smoking Tobacco: Former Cigarettes 1 20 0 08/28/1958 - 08/28/1978 Smokeless Tobacco: Current Chew Tobacco Cessation:Ready to Q uit: Not Asked; Counseling Given: Not Answered Comments:1/2 can a day Alcohol Use Standard Drinks/Week Comments No 0 (1 standard drink = 0.6 oz pur e alcohol) Sex and Gender Information Value Date Recorded Sex Assigned at Not on file Gender Identity Not on file Sexual Orientation Not on file Last Filed Vital Signs Vital Sign Reading Time Taken Comments Blood Pressure 132/90 07/12/2023 1:29 PM FRONT END LOADER OPERATOR Pulse 90 07/12/2023 1:29 PM FRONT END LOADER OPERATOR Temperature 36.7 C (98 F) 05/19/2023 9:03 AM CDT Respiratory Rate 15 05/19/2023 9:03 AM CDT Oxygen Saturation 98% 05/19/2023 9:03 AM CDT Inhaled Oxygen Concentration - - Weight 83.9 kg (185 lb) 07/12/2023 1:29 PM FRONT END LOADER OPERATOR Height 177.8 cm (5' 10 ) 07/12/2023 1:29 PM FRONT END LOADER OPERATOR Body Mass Index 26.54 07/12/2023 1:29 PM FRONT END LOADER OPERATOR Plan of Treatment Health Maintenance Due Date Last Done Comments HEPATITIS B VACCINE (3 of 3 - Risk 3-dose series) 02/24/2022 09/28/2021, 08/26/2021 Respiratory Syncytial Virus (RSV) Vaccine Pt: or over 60 yrs (1 - 1-dose 75+ series) 2023 COVID-19 VACCINE ( season) 2024 07/03/2023, 02/22/2022, 07/15/2021, Additional history exists DEPRESSION SCREENING 08/28/2024 MEDICARE AWV CALENDAR YEAR 2024 INFLUENZA VACCINE (Season Ended) 2025 07/03/2023, 07/14/2022, 06/28/2021, Additional history exists DTAP/TDAP/TD VACCINES (2 - Td or Tdap) 02/23/2028 02/22/2018 PNEUMOCOCCAL VACCINE 50+ Completed 021, 01/01/2015, 06/24/2014 ZOSTER VACCINE Completed 08/26/2021, 02/25/2021 HEPATITIS C SCREENING Completed 10/18/2021 , 08/31/2021, 06/10/2021, Additional history exists HIB VACCINE Aged Out No longer eligi ble based on patient's age to complete this topic HPV VACCINE Aged Out No longer eligi ble based on patient's age to complete this topic MENINGOCOCCAL (Group B) VACCINE SHARED DECISION-MAKING Aged Out No longer eligible based on patient's age to complete this topic MENINGOCOCCAL GROUPS A/C/Y/W VACCINE Aged Out No longer eligible based on patient's age to complete this topic Goals Goal Patient Goal Type Associated Problems Recent Progress Patient-Stated? Author Medication Management General On track( 022 12:23 PM FRONT END LOADER OPERATOR) Luba Stokes, RN Note: Expected end date: Ongoing Interventions: Take all medications as prescribed Let your doctor know right away about any changes in your medications Make sure to request a refill of your medication at least one week prior to your last dose Medical Devices Implanted Type Area Clinical Quality Analyst Device Identifier Shelf Expiration Date Model / Serial / Lot Neuro Stimulator-11/26 Implanted:11/26 (Quantity not on file) Neuro Stimulator / [id number] / Description:Miguel Goel MD te l: [id number] IPG MOdel # SC-1200 Leads/Model # please call patient care at [phone] Mobile Bridge Precision Montage MRI Wax Bone Implanted:Qty: 1 on 05/21/2013 at [facility] [place] [employer], [facility] [id number] / / Procedures Procedure Name Priority Date/Time Associated Diagnosis Comments HEPATITIS C REAL-TIME PCR QUANTASURE Routine 03/19/2014 11:26 AM CDT from Last 3 Months or Most Recently Relevant to Health Maintenance Results * HEPATITIS C REAL-TIME PCR QUANTASURE (03/19/2014 11:26 AM CDT) Hepatitis C Virus RNA PCR Quantitative <15 NOT DETECTED <15 IU/mL [facility]) Hepatitis C Virus RNA Log IU/mL <1.18 NOT DETECTED <1.18 Log IU/mL [facility]) See Note [facility] Comment: Please note: The guidelines for the use of new anti-HCV therapies (boceprevir and telaprevir) recommend using a test method that detects plasma viral nucleic acid levels as low as 10 IU/mL. This assay has a Limit of Detection of 10-13 IU/mL and conforms to the recommendation. Quantitation of plasma HCV nucleic acid levels below 15 IU/mL (the Lower Limit of Quantitation for this test) may not be linear, and in this circumstance are reported as <15 IU/mL HCV RNA Detected . This test was performed using the ERICK(R)AmpliPrep/ ERICK(R)TaqMan(R)HCV Test, v2.0. The performance characteristics of this assay have been determined by [employer]. Performance characteristics refer to the analytical performance of the test. For more information on this test, go to: http://education.Protonet/faq/SFZ73u1 REPORT COMMENT: IS PATIENT ON HEPARIN?->N; ADDITIONAL INFORMATION->CIRRHOSIS Test Performed at: [facility] [id number] [facility] [place] [address] JOSEF LACY DO,MPH 03/19/2014 11:2 6 AM CDT 03/19/2014 11:26 AM CDT Fernandez Stephen MD LAB - SEROLOGY ORDER GRI[facility]) from Last 3 Months or Most Recently Relevant to Health Maintenance Advance Directives * Full Code (Latest Code Status on File) Date Activated Date Inactivated Comments 05/19/2023 5:17 AM 05/19/2023 12:43 PM * FULL RESUSCITATION Date Activated Date Inactivated Comments 05/21/2013 12:15 PM 05/22/2013 1:31 PM Care Teams Master Glazier Relationship Specialty Start Date End Date Mainor Torres MD [address] [place] [address] PCP - General Family Medicine 04/03/23 Manasa Rivera MD [address] [place] [address] Anesthesiology 04/19/21
--- OUTSIDE RECORDS SUMMARY | 2024-12-06 15:32 | XMS_ITS | Encounter Summary ---
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 packer and picker Encounter Details Date Type Department Care Team (Late st Contact Info) Description 02/06/2018 Telephone [facility] [address] [place] [address] Manasa Rivera MD [address] [place] [address] Med Refill ([place], cigar packer and picker) Social History Tobacco Use Types Packs/Day Years Used Date Smoking Tobacco: Former Smokeless Tobacco: Current Sex and Gender Information Value Date Recorded Sex Assigned at Not on file Legal Sex 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 90 tablet 02/06/2018 03/05/2018 documented in this encounter Plan of Treatment Not on file documented as of this encounter Goals Goal Patient Goal Type Associated Problems Recent Progress Patient-Stated? Author -Pain Behavioral Health No Bharathi Garsia, RN Note: Patient will describe how unrelieved pain will be managed. documented as of this encounter Visit Diagnoses Diagnosis Other chronic pain- Primary documented in this encounter Discontinued Medications Medication Sig Discontinue Reason Start Date End Da te HYDROcodone-acetaminoph en (NORCO) 10-325 mg per tabletIndications:Pain, for BTP Take 1 tablet by mouth 2 (two) times a day as needed for pain Earliest Fill Date: 10/10/17. Reorder 10/10/2017 02/06/2018 documented as of this encounter Care Teams Stretcher Leveler Operator Helper Relationship Specialty Start Date End Date Seymour Oconnor MD PCP - General 10/21/16 09/27/23 Mainor Torres MD PCP - General Family Medicine 09/28/23 Bharathi Garsia, RN Registered Nurse 10/10/17 06/02/24 [place] [address] [address] [facility] [address] [place] [address] Nurse Practitioner Nurse Practitioner 06/03/24 [place] [address] [facility] [place] [address] Consulting Physician Pain Management 10/08/24 documented as of this encounter
--- OUTSIDE RECORDS SUMMARY | 2024-12-06 15:32 | XMS_ITS | Clinical Summary ---
Author Organization [facility] Address [facility] [place] [address] Care Team Providers Care Cut Pressman Name Role Phone Unavailable Primary Care Provider Unavailabl e Social History Tobacco Use Types Packs/Day Years Used Date Smoking Tobacco: Never Assessed Sex and Gender Information Value Date Recorded Sex Assigned at Not on file Legal Sex Male 8:12 PM CDT Gender Identity Not on file Sexual Orientation Not on file Plan of Treatment Health Maintenance Due Date Last Done Comments Hepatitis C 1966 DTaP, Tdap and Td Vaccines ( 1 - Tdap) 1967 Zoster Vaccines (1 of 2) 1998 Pneumococcal Vaccine: 65+ Ye ars (1 of 1 - PCV) 2013 RSV Immunization or 60+ Years (1 - 1-dose 75+ series) 2023 COVID-19 Vaccine ( - 2023-2 5 season) 2024 Meningococcal B Vaccine Aged Out No l onger eligible based on patient's age to complete this topic Meningococcal Vaccine Aged Out No kami celestino eligible based on patient's age to complete this topic RSV Immunizations Under 20 Months Aged Out No longer eligible based on patient's age to complete this topic
[2024-12-06 16:47] LABS: Free T4 Free Thyroxine 0.91 ng/dL (0.78-2.19)
== END 2024-12-06 15:28 | disposition home or self-care (01) ==
PROVIDERS: PCP Family Medicine; Visit Provider Internal Medicine Endocrinology, Diabetes & Metabolism
DX: E04.1 Nontoxic single thyroid nodule (principal)
CPT/HCPCS: 36415; 84439; 84443

== ENCOUNTER 2025-06-25 08:10 | Outpatient (CLI) | payer MEDICARE, SELFPAY ==
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
--- NOTE | ~2025-06-25 | XR_ITS ---
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 COMPARISON: No comparisons available. Findings: No acute fracture or malalignment. Moderate degenerative changes of the distal interphalangeal joints, no erosions are identified. Soft tissues unremarkable. Impression: No acute fracture or malalignment. Reviewed, dictated and finalized at location P. Impression: No acute fracture or malalignment.
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
--- OUTSIDE RECORDS SUMMARY | 2025-06-25 08:19 | XMS_ITS | Encounter Summary ---
Author Organization [facility] Healthcare Address [facility] [place] [address] Care Team Providers Care Industrial Hire Sales Assistant Name Role Phone Seymour Oconnor MD Primary Care Provider Bharathi Garsia RN Unavailable [facility] Mainor Munoz MD Primary Care Provider + [phone] Mike Fritz NP Unavailable [phone] Trae Hernandes MD Unavailable [phone] Encounter Details Date Type Department Care Team (Late st Contact Info) Description 03/14/2019 Telephone [facility] at [place] [id number] [address] John Samuel Social History Tobacco Use Types Packs/Day Years Used Date Smoking Tobacco: Former Smokeless Tobacco: Current Alcohol Use Standard Drinks/Week Comments No 0 (1 standard drink = 0.6 oz pur e alcohol) Sex and Gender Information Value Date Recorded Sex Assigned at Not on file 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 documented as of this encounter Visit Diagnoses Not on filedocumented in this encounter Care Teams Industrial Hire Sales Assistant Relationship Specialty Start Date End Date Seymour Oconnor MD PCP - General 10/21/16 09/27/23 Mainor Torres MD PCP - General Family Medicine 09/28/23 Bharathi Garsia, RN Registered Nurse 10/10/17 06/02/24 [place] [address] [address] [facility] [address] [place] [address] Nurse Practitioner Nurse Practitioner 06/03/24 [place] [address] [address] [facility] [address] [facility] [place] [address] Consulting Physician Pain Management 10/08/24 documented as of this encounter
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
--- OUTSIDE RECORDS SUMMARY | 2025-06-25 08:19 | XMS_ITS | Encounter Summary ---
Author Organization [facility] Healthcare Address [address] [place] [address] Care Team Providers Care Visor Installer Name Role Phone Seymour Oconnor MD Primary Care Provider Bharathi Garsia RN Un[facility] Mainor Munoz MD Primary Care Provider + [phone] Mike Fritz NP Unavailable [phone] Trae Hernandes MD Unavailable [phone] Reason for Visit * Reason Onset Date Comments Med Refill 02/06/2018 [place], pick up attendant Encounter Details Date Type Department Care Team (Late st Contact Info) Description 02/06/2018 Telephone [facility] at [facility] [address] [facility] [address] [place] [address] Manasa Rivera MD [address] [facility] [place] [address] Med Refill ([place], pick up attendant) Social History Tobacco Use Types Packs/Day Years Used Date Smoking Tobacco: Former Smokeless Tobacco: Current Sex and Gender Information Value Date Recorded Sex Assigned at Not on file 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 Gender Identity Not on file Sexual Orientation [...] documented as of this encounter Care Teams Visor Installer Relationship Specialty Start Date End Date Seymour Oconnor MD PCP - General 10/21/16 09/27/23 Mainor Torres MD PCP - General Family Medicine 09/28/23 Bharathi Garsia, RN Registered Nurse 10/10/17 06/02/24 [place] [address] [address] [facility] [address] [place] [address] Nurse Practitioner Nurse Practitioner 06/03/24 [place] [address] [address] [facility] [place] [address] Consulting Physician Pain Management 10/08/24 documented as of this encounter
--- OUTSIDE RECORDS SUMMARY | 2025-06-25 08:19 | XMS_ITS | Patient Health Record ---
Author Organization [facility] [facility] Address [address] [place] [address] Support Name Relationship Address Phone JESSICA ALEJANDRA Guarantor Unknown Reason For Referral No Information Medications Medication SIG (Take, Route, Frequency, Duration) Notes Start Date End Date Status valACYclovir HCl 1 GM Tablet Oral 08/16/2022 Active DULoxetine HCl 30 MG Capsule Delayed Release Particles Oral 08/16/2022 Active Linzess 72 mcg Capsule Oral 08/16/2022 Active traZODone HCl 150 MG Tablet Oral 08/16/2022 Active HYDROcodone-Acetaminophen 10-325 MG Tablet Oral 08/16/2022 Active buPROPion HCl ER (XL) 300 MG Tablet Extended Release 24 Hour Oral 08/16/2022 Active Social History Social History Additional Details Category Social Info Options Details Migrated Social History Migrated Social History Alcohol Intake: None 08/16/2022,Tobacco Years: Former smoker 08/16/2022 Plan Of Treatment No Information Insurance Providers Payer Name Payer Address Payer Phone Subscriber Number Group Number Insured Name Patient Relationship to Insured Coverage Start Date Coverage End Date [facility] [address] [place] [address] [id number] JESSICA ALEJANDRA Self - patient is the insured Medical (General) History Surgical History Surgery Date(Month/Year) Repair of inguinal hernia ([id number]) x3 Procedure on back ([id number]) x2
--- OUTSIDE RECORDS SUMMARY | 2025-06-25 08:19 | XMS_ITS | Encounter Summary ---
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 Gender Identity Not on file Sexual Orientation Not on file documented as of this encounter Miscellaneous Notes * Telephone Encounter - Eve Rodas - 06/24/2025 12:33 PM CDT New Patient Intake Form Spine Referring physician DR HERNANDES Insurance: [place] Litigation: NO Second Opinion: NO Diagnosis: LUMBAR OST LAMI SYNDROME Location (Spinal Area-please specify cervical, thoracic, lumbar): LUMBAR Imaging Done within Last 5 Years: YES List ALL: L-MRI Imaging Location: HT: 5'11 WT: 180 BMI: 25.10 Weakness: BLAYNE LEGS AND BACK Numbness: LT LEGS Spinal Pain: LOW BACK Incontinence: NO Duration of symptoms: SEVERAL YEARS Spine surgery - within last 10 years: NO Location: Has the patient had spinal surgery within the last year? NO Physical therapy within last year (for this problem):NO If yes, number of visits: Location: -Ask pt to bring/send notes. Pain Management (Injections) within last year YES Location: DR HERNANDES INJECTIONS DO NOT HELP Are you a current smoker: NO documented in this encounter Plan of Treatment Not on file documented as of this encounter Goals Goal Patient Goal Type Associated Problems Recent Progress Patient-Stated? Author [facility] No Bharathi Garsia, JEANCARLOS Note: Patient will describe how unrelieved pain will be managed. CCM Chronic Pain Care Plan Chronic Care Management Yes Nilda Hartmann, JEANCARLOS Note: Problem: Chronic Pain Goals: 1. Minimize [...] on filedocumented in this encounter Care Teams Dairy Farm Supervisor Relationship Specialty Start Date End Date Mainor Torres MD PCP - General Family Medicine 09/28/23 [place] [address] [facility] [address] [place] [address] Nurse Practitioner Nurse Practitioner 06/03/24 [place] [address] [address] [facility] [address] [address] Consulting Physician Pain Management 10/08/24 documented as of this encounter
--- OUTSIDE RECORDS SUMMARY | 2025-06-25 08:19 | XMS_ITS | Clinical Summary ---
Author Organization [facility] Address [address] [place] [address] Care Team Providers Care Photocopying Equipment Repairer Name Role Phone Manasa Rivera MD Unavailable [phone] Mainor Torres MD Primary Care Provider [phone] Source Comments [facility],non-owned Affiliates and Associated Physician Practices is amultiple site organization consisting of ambulatory clinics and hospital sitesin [place], [place], [place] and [place]. This disclosure is being madepursuant to the Care Everywhere program and may not contain all information available regarding this patient. Last updated 18.[facility] Allergies No known active allergies Medications * Be aware that medications may not be up to date on this document. Alwaysverify current medications with the patient. Esomeprazole Magnesium (NEXIUM PO) Take by mouth as needed Active Venlafaxine HCl (EFFEXOR PO) Take 225 mg by mouth once daily Active carbidopa-lev odopa (SINEMET) 10-100 MG tablet at bedtime 10/10/19 19 Active amLODIPine (NORVASC) 10 MG tablet amlodipine 10 mg tablet TAKE 1 TABLET BY MOUTH EVERY DAY 05/23/20 20 Active hydroCHLOROth iazide (MICROZIDE) 12.5 MG capsule hydrochlorothiazide 12.5 mg capsule TAKE 1 CAPSULE BY MOUTH EVERY DAY IN THE MORNING 08/02/20 20 Active HYDROcodone-a cetaminophen (NORCO) 10-325 MG tablet TAKE ONE TABLET BY MOUTH EVERY 6 HOURS NEEDED 02/26/20 21 Active DULoxetine (Cymbalta) 60 MG capsule Take 1 (one) capsule by mouth once daily 01/17/20 23 Active traZODone (Desyrel) 50 MG tablet Take 1 (one) tablet by mouth at bedtime 04/19/20 22 Active buPROPion XL 24hr (Wellbutrin-X L) 300 MG tablet Take 1 (one) tablet by mouth every morning 02/15/20 23 Active Ascorbic Acid (VITAMIN C PO) Take 1 tablet by mouth as directed Active Cyanocobalami n (VITAMIN B-12 PO) Take 1 tablet by mouth as directed Active aspirin EC (Ecotrin) 81 MG tablet Take 1 (one) tablet by mouth once daily Active morphine CR 12hr (MS Contin) 15 MG tablet Take 1 (one) tablet by mouth 2 times daily 05/10/20 23 Active oxyCODONE, immediate release, (Roxicodone) 5 MG tabletIndicat ions:Substern al goiter Take 1 (one) tablet by mouth every 4 hours as needed 24 tablet 05/19/20 23 Active acetaminophen (Tylenol) 325 MG tablet Take 2 (two) tablets by mouth every 6 hours Maximum allowable Acetaminophen amount = 4 Grams (4000 mg) / 24 hours. 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 Gender Identity Not on file Sexual Orientation Not on file Occupation Industry Job Start Date Job End Date RETIRED Not on file Not on file Not on file Last Filed Vital Signs Vital Sign Reading Time Taken Comments Blood Pressure 132/90 07/12/2023 1:29 PM [employer]CHOOL INSPECTOR Pulse 90 07/12/2023 1:29 PM SCHOOL INSPECTOR Temperature 36.7 C (98 F) 05/19/2023 9:03 AM CDT Respiratory Rate 15 05/19/2023 9:03 AM CDT Oxygen Saturation 98% 05/19/2023 9:03 AM CDT Inhaled Oxygen Concentration - - Weight 83.9 kg (185 lb) 07/12/2023 1:29 PM SCHOOL INSPECTOR Height 177.8 cm (5' 10) 07/12/2023 1:29 PM SCHOOL INSPECTOR Body Mass Index 26.54 07/12/2023 1:29 PM SCHOOL INSPECTOR Plan of Treatment Health Maintenance Due Date Last Done Comments HEPATITIS B VACCINE (3 of 3 - Risk 3-dose series) 02/24/2022 09/28/2021, 08/26/2021 Respiratory Syncytial Virus (RSV) Vaccine Pt: or over 60 yrs (1 - 1-dose 75+ series) 2023 DEPRESSION SCREENING 08/28/2024 MEDICARE AWV CALENDAR YEAR 2024 COVID-19 VACCINE ( season) 2025 07/03/2023, 02/22/2022, 07/15/2021, Additional history exists INFLUENZA VACCINE (#1) 2025 , 07/14/2022, 06/28/2021, Additional history exists DTAP/TDAP/TD VACCINES [...] Management General On track( 022 12:23 PM SCHOOL INSPECTOR) No Luba Koch, RN Note: Expected end date: Ongoing Interventions: Take all medications as prescribed Let your doctor know right away about any changes in your medications Make sure to request a refill of your medication at least one week prior to your last dose Medical Devices Implanted Type Area Staff Respiratory Therapist Device Identifier Shelf Expiration Date Model / Serial / Lot Neuro Stimulator-11/26 Implanted:11/26 (Quantity not on file) Neuro Stimulator / [id number] / Description:Miguel Goel MD te l: [phone] IPG MOdel # SC-1200 Leads/Model # please call patient care at [phone] [employer]ision Montage MRI Wax Bone Implanted:Qty: 1 on 05/21/2013 at [facility] [employer], Ingrid [id number] / / Procedures Procedure Name Priority Date/Time Associated Diagnosis Comments HEPATITIS C REAL-TIME PCR QUANTASURE Routine 03/19/2014 11:26 AM CDT from Last 3 Months or Most Recently Relevant to Health Maintenance Results * HEPATITIS C REAL-TIME PCR QUANTASURE (03/19/2014 11:26 AM CDT) Hepatitis C Virus RNA PCR Quantitative <15 NOT DETECTED <15 IU/mL [facility] Hepatitis C Virus RNA Log IU/mL <1.18 NOT DETECTED <1.18 Log IU/mL [facility] See Note [facility] Comment: Please note: The guidelines for the [...] are reported as <15 IU/mL HCV RNA Detected. This test was performed using the ERICK(R)AmpliPrep/ ERICK(R)TaqMan(R)HCV Test, v2.0. The performance characteristics of this assay have been determined by [employer]. Performance characteristics refer to the analytical performance of the test. For more information on this test, go to: http://education.Casualing.AlphaLab/faq/KOS64z8 REPORT COMMENT: IS PATIENT ON HEPARIN?->N; ADDITIONAL INFORMATION->CIRRHOSIS Test Performed at: [email or web address] [place] [id number] [id number] JOSEF LACY DO,MPH 03/19/2014 11:2 6 AM CDT 03/19/2014 11:26 AM CDT us Fernandez Stephen MD LAB - SEROLOGY ORDERABLES Final Result [facility]) [id number] from Last 3 Months or Most Recently Relevant to Health Maintenance Insurance [facility] MANAGED MEDICARE ADV [facility] MANAGED MEDICARE ADV Advance Directives * Full Code (Latest Code Status on File) Date Activated Date Inactivated Comments 05/19/2023 5:17 AM 05/19/2023 12:43 PM * FULL RESUSCITATION Date Activated Date Inactivated Comments 05/21/2013 12:15 PM 05/22/2013 1:31 PM Care Teams Photocopying Equipment Repairer Relationship Specialty Start Date End Date Mainor Torres MD [address] [place] [id number] PCP - General Family Medicine 04/03/23 Manasa Rivera MD [address] [facility] [place] [address] Anesthesiology 04/19/21
--- OUTSIDE RECORDS SUMMARY | 2025-06-25 08:19 | XMS_ITS | Clinical Summary ---
Author Organization [facility] Address [facility] [place] [address] Care Team Providers Care Electronics Detail Draftsperson Name Role Phone Unavailable Primary Care Provider [...] Td Vaccines ( 1 - Tdap) 1967 Pneumococcal Vaccine: 50+ Ye ars (1 of 1 - PCV) 1998 Zoster Vaccines (1 of 2) 1998 RSV Immunization or 60+ Years (1 - 1-dose 75+ series) 2023 COVID-19 Vaccine (1 - 2024-2 6 season) 2025 Influenza Adult (#1) 2025 Hepatitis A Vaccines Aged Out No long er eligible based on patient's age to complete this topic Meningococcal B Vaccine Aged Out No l onger eligible based on patient's age to complete this topic Meningococcal Vaccine Aged Out No kami celestino eligible based on patient's age to complete this topic RSV Immunizations Under 20 Months Aged Out No longer eligible based on patient's age to complete this topic
== END 2025-06-25 08:11 | disposition home or self-care (01) ==
PROVIDERS: Visit Provider Physician Assistant Surgical
DX: M18.11 Unilateral primary osteoarthritis of first carpometacarpal joint, right hand (principal)
CPT/HCPCS: 73130